=== PATIENT | male | born 1945 | race African-American/Black ===

== ENCOUNTER 2017-09-01 10:04 | Inpatient (IN) | payer MEDICARE, OTHER ==
[2017-09-01] VITALS (7 sets, daily range): BP systolic 152–179; BP diastolic 66–88; PULSE 87–95; RESP 16–24; TEMP 99.6–101.1; O2SAT 94–97
[~2017-09-01] VITALS: Ht 188 cm; Wt 108.8 kg
[2017-09-01] MEDS ORDERED: MORPHINE SULFATE 4 MG/ML INJ IV PUSH ONE (11:00)
[2017-09-01] MEDS ORDERED: SODIUM CHLORIDE 0.9% FLUSH 10 ML FLUSH IV FLUSH PRN ×2 (11:00→16:45)
[2017-09-01] MEDS ORDERED: ONDANSETRON HCL 4 MG/2 ML VIAL IVP ONE (11:00)
[2017-09-01 11:47] LABS: BASOPHIL % 0.2 % (0.0-2.0); EOSINOPHIL % 0.1 % (0.0-4.0); HEMATOCRIT 43.7 % (39.0-51.0); HEMO FLAGS DIFF FINAL; LYMPH % 6.6 % (9.0-44.0); MEAN CELL VOLUME 91.1 FL (80.0-100.0); MEAN CORPUSCULAR HEMOGLOBIN 31.2 PG (27.0-34.0); MEAN CORPUSCULAR HGB CONC 34.2 % (32.0-36.0); MONO % 4.4 % (0.0-8.0); NEUT % 88.7 % (16.0-70.0); PLATELET COUNT 186 TH/MM3 (150-450); RED BLOOD COUNT 4.79 MIL/MM3 (4.50-5.90); RED CELL DISTRIBUTION WIDTH 13.3 % (11.6-17.2); WHITE BLOOD COUNT 14.6 TH/MM3 (4.0-11.0)
[2017-09-01 11:54] LABS: BACTERIA, URINE MOD /hpf; BLOOD, URINE MOD (NEG); COMMENT (UR) CULTURE INDICATED; CULTURE IF INDICATED CULTURE INDICATED; GLUCOSE,URINE NEG (NEG); KETONE, URINE NEG (NEG); MUCUS URINE FEW /lpf (OCC); NITRITE,URINE POS (NEG); SQUAMOUS EPITHELIAL CELL URINE <1 /hpf (0-5); URINE COLOR YELLOW (YELLW/STRAW)
[2017-09-01] MEDS ORDERED: cefTRIAXone INJ 1,000 MG in SODIUM CHLORIDE 0.9% INJ 100 ML IV ONE (12:00)
[2017-09-01 12:09] LABS: ANION GAP 6 MEQ/L (5-15); AST (GOT) 26 U/L (15-37); BICARBONATE 26.2 MEQ/L (21.0-32.0); BLOOD UREA NITROGEN 10 MG/DL (7-18); CHLORIDE 102 MEQ/L (98-107); GLOMERULAR FILTRATION RATE 55 ML/MIN (>89); SODIUM (NA) 134 MEQ/L (136-145)
[2017-09-01 12:11] LABS: ALT (GPT) 31 U/L (12-78)
--- NOTE | 2017-09-01 12:11 | RADRPT ---
EXAM DATE/TIME: 09/01/2017 11:11 [facility] COMPARISON: No previous studies available for comparison. INDICATIONS : Left testicle pain. MEDICAL HISTORY : Hypertension. SURGICAL HISTORY : Bilateral hip replacement. Bialteral knee replacement. Left ankle surgery. ENCOUNTER: Initial ACUITY: 1 day PAIN SCORE: 5/10 LOCATION: Bilateral testicles. MEASUREMENTS: RIGHT TESTICLE: 5.1 x 3.6 x 2.5 cm LEFT TESTICLE: 4.4 x 3.4 x 3.3cm FINDINGS: RIGHT TESTICLE: Scattered, punctate hyperechoic areas characteristic of early microlithiasis.. Blood flow is symmetr ic and within normal limits. No hydrocele or varicocele. Epididymis is within normal limits with a small epididymal cyst.. Heterogeneous, complex area near the mid testicle is symmetric to the contra lateral side and probably represents the prominent rete testes. LEFT TESTICLE: Homogeneous echotexture without intra testicular mass. However, there is a 2.2 x 3.2 x 3.1 cm comple x area adjacent to the lower pole of the testicle which does not show regional blood flow. Blood edin w to the testicle is symmetric and within normal limits. No hydrocele or varicocele. Epididymis is within normal limits. Heterogeneous, complex area in the mid testicle is again symmetric to the cont ralateral side and probably represents a prominent rete testes. SCROTUM: Within normal limits. CONCLUSION: 1. Mild microlithiasis the right testicle with no discrete mass lesion. 2. Small epididymal cyst also on the right. 3. Complex 2.2 x 3.2 x 2.1 cm extratesticular area adjacent to the lower pole of the left testicle do es not show regional blood flow and is overtly benign. This could represent old thrombus or debris if there is a history of trauma/epididymitis to the left hemiscrotum. I would recommend a followup test icular ultrasound in 3 months to insure stability/resolution. 4. Prominent rete testes bilaterally. Uday Cunningham MD on September 01, 2017 at 11:55 Board Certified Radiologist. This report was verified electronically.
[2017-09-01 12:12] LABS: ALKALINE PHOSPHATASE 103 U/L (45-117); TOTAL BILIRUBIN ADULT 0.8 MG/DL (0.2-1.0)
[2017-09-01] MEDS ORDERED: DOCU100C15 PO (13:24)
[2017-09-01] MEDS ORDERED: AMLO10TA2 PO (13:24)
[2017-09-01] MEDS ORDERED: TERA2CAP3 PO (13:24)
[2017-09-01] MEDS ORDERED: LORA-650 PO (13:24)
[2017-09-01] MEDS ORDERED: IOHEXOL 350 MG/ML 10 ML VIAL (for RAD DIAG) IVCONTRAST ONE (13:24)
[2017-09-01] MEDS ORDERED: LOSA100T PO (13:24)
[2017-09-01] MEDS ORDERED: TRAZ1TAB14 PO (13:24)
[2017-09-01] MEDS ORDERED: DONE10TA7 PO (13:24)
[2017-09-01] MEDS ORDERED: CITA10TA4 PO (13:24)
[2017-09-01] MEDS ORDERED: ETOD400T PO (13:24)
--- NOTE | 2017-09-01 13:47 | RADRPT ---
EXAM DATE/TIME: 09/01/2017 13:16 [facility] COMPARISON: No previous studies available for comparison. INDICATIONS : Bilateral abdominal pain radiating to groin IV CONTRAST: 93 cc Omnipaque 350 (iohexol) IV ORAL CONTRAST: No oral contrast ingested. RADIATION DOSE: 18.01 CTDIvol (mGy) MEDICAL HISTORY : Hypertension. SURGICAL HISTORY : None. ENCOUNTER: Initial ACUITY: 1 day PAIN SCALE: 8/10 LOCATION: Bilateral abdomen TECHNIQUE: Volumetric scanning of the abdomen and pelvis was performed. Using automated exposure control and ad justment of the mA and/or kV according to patient size, radiation dose was kept as low as reasonably achievable to obtain optimal diagnostic quality images. DICOM format image data is available electro nically for review and comparison. FINDINGS: LOWER LUNGS: The visualized lower lungs are clear. LIVER: Homogeneous density without lesion. There is no dilation of the biliary tree. No calcified gallston es. SPLEEN: Normal size without lesion. PANCREAS: Within normal limits. KIDNEYS: A 6.6 x 6.2 x 5.8 cm solid mass is seen exophytic from the lower pole the right kidney. Hounsfield un its are 36. A few tiny wispy calcifications are seen involving the peripheral medial margin of the ma ss within its more inferior extent. ADRENAL GLANDS: Small bilateral adrenal gland nodules observed. The left measures 1.9 cm with Hounsfield units 38 and the right 1.5 cm with Hounsfield units 36. VASCULAR: There is no aortic aneurysm. BOWEL/MESENTERY: The stomach, small bowel, and colon demonstrate no acute abnormality. There is no free intraperitone al air or fluid. ABDOMINAL WALL: Within normal limits. RETROPERITONEUM: There is no lymphadenopathy. BLADDER: No wall thickening or mass. REPRODUCTIVE: Within normal limits. INGUINAL: There is no lymphadenopathy or hernia. MUSCULOSKELETAL: Bilateral hip arthroplasties. Old trauma involving the pubic rami on the right. CONCLUSION: 1. 6.6 x 6.2 x 5.8 cm solid mass involving the lower pole of the right kidney. This should be conside red malignant until proven otherwise. No involvement of the renal vein. No retroperitoneal adenopathy . The lesion is accessible percutaneously for biopsy. The lesion is too large for consideration for c ryoablation. 2. Bilateral adrenal gland nodules which are nonspecific on this study. Adrenal gland protocol MRI co uld be considered to further evaluate. 3. No acute abnormality to explain the patient's pain. Eduardo Peter Jr., MD on September 01, 2017 at 13:35 Board Certified Radiologist. This report was verified electronically.
[2017-09-01] MEDS ORDERED: KETOROLAC TROMETHAMINE 30 MG/ML (IVP) VIAL IV PUSH ONE (14:30)
--- NOTE | 2017-09-01 15:43 | PD ---
HPI Chief Complaint: Abdominal Pain Time Seen by Provider: 10:43 Travel History International Travel<30 days: No Contact w/Intl Traveler<30days: No Traveled to known affect area: No History of Present Illness HPI Patient is a 72 year old male who comes in complaining of severe LLQ abdominal pain, radiating into his testicle. He says it started yesterday. He says he was feeling unwell, with nausea and weakness. The pain started later in the evening. He denies difficulty urinating. He denies trauma to his testicles. He denies fever or chills. He denies cough or cold. He says he is having normal bowel movements. He did not take anything for pain at home. [facility] Past Medical History Cardiovascular Problems: Yes (HTN) Hypertension: Yes Influenza Vaccination: Yes Past Surgical History Other Surgery: Yes (LEFT ANKLE SURGERY) Social History Alcohol Use: No Tobacco Use: No Substance Use: No Allergies-Medications (Allergen,Severity, Reaction): Coded Allergies: No Known Allergies (Unverified , 09/01/17) Reported Meds & Prescriptions Reported Meds & Active Scripts Active Reported Trazodone (Trazodone HCl) 150 Mg Tablet 100 Mg PO HS Terazosin (Terazosin HCl) 2 Mg Cap 2 Mg PO HS Losartan (Losartan Potassium) 100 Mg Tab 100 Mg PO DAILY Allergy Relief (Loratadine) 10 Mg Tab 10 Mg PO DAILY PRN Etodolac 400 Mg Tab 400 Mg PO TID PRN Take with food. Donepezil 10 Mg Tab 10 Mg PO HS Docusate Sodium 100 Mg Cap 100 Mg PO BID PRN Citalopram (Citalopram Hydrobromide) 10 Mg Tab 10 Mg PO DAILY Amlodipine (Amlodipine Besylate) 10 Mg Tab 10 Mg PO DAILY Review of Systems Except as stated in HPI: all other systems reviewed are Neg General / Constitutional: No: Fever HENT: No: Headaches, Lightheadedness Cardiovascular: No: Chest Pain or Discomfort Respiratory: No: Shortness of Breath Gastrointestinal: Positive: Nausea, Abdominal Pain Genitourinary: No: Hematuria Musculoskeletal: No: Edema Skin: No Rash, No Change in Pigmentation Neurologic: No: Weakness, Dizziness Physical Exam Narrative GENERAL: Awake and alert, in no acute distress. SKIN: Focused skin assessment warm/dry. HEAD: Atraumatic. Normocephalic. EYES: Pupils equal and round. No scleral icterus. ENT: Mucous membranes pink and moist. NECK: Trachea midline. No JVD. CARDIOVASCULAR: Regular rate and rhythm. No murmur appreciated. RESPIRATORY: No accessory muscle use. Clear to auscultation. Breath sounds equal bilaterally. GASTROINTESTINAL: Abdomen soft, nondistended. Tender to palpation of LLQ. No rebound or guarding. : Tender to the left testicle, no masses or lesions. No hernia. MUSCULOSKELETAL: No obvious deformities. No clubbing. No cyanosis. No edema. NEUROLOGICAL: Awake and alert. No obvious cranial nerve deficits. Motor grossly within normal limits. Normal speech. PSYCHIATRIC: Appropriate mood and affect; insight and judgment normal. Data Data Last Documented VS Vital Signs Date Time Temp Pulse Resp B/P (MAP) Pulse Ox O2 Delivery O2 Flow Rate FiO2 09/01/17 14:34 93 24 179/88 (118) 96 Room Air 09/01/17 10:15 99.7 Orders Orders Complete Blood Count With Diff (09/01/17 10:53) Comprehensive Metabolic Panel (09/01/17 10:53) Lactic Acid (09/01/17 10:53) Urinalysis - C+S If Indicated (09/01/17 10:53) Iv Access Insert/Monitor (09/01/17 10:53) Ecg Monitoring (09/01/17 10:53) Oximetry (09/01/17 10:53) Morphine Inj (Morphine Inj) (09/01/17 11:00) Ondansetron Inj (Zofran Inj) (09/01/17 11:00) Sodium Chloride 0.9% Flush (Ns Flush) (09/01/17 11:00) Us Testicles W Doppler (09/01/17 ) Urine Culture (09/01/17 11:10) Ceftriaxone Inj (Rocephin Inj) (09/01/17 12:00) Ct Abd/Pel W Iv Contrast(Rout) (09/01/17 ) Iohexol 350 Inj (Omnipaque 350 Inj) (09/01/17 13:24) Ketorolac Inj (Toradol Inj) (09/01/17 14:30) Labs Laboratory Tests Test 09/01/17 11:10 White Blood Count 14.6 TH/MM3 Red Blood Count 4.79 MIL/MM3 Hemoglobin 14.9 GM/DL Hematocrit 43.7 % Mean Corpuscular Volume 91.1 FL Mean Corpuscular Hemoglobin 31.2 PG Mean Corpuscular Hemoglobin Concent 34.2 % Red Cell Distribution Width 13.3 % Platelet Count 186 TH/MM3 Mean Platelet Volume 9.4 FL Neutrophils (%) (Auto) 88.7 % Lymphocytes (%) (Auto) 6.6 % Monocytes (%) (Auto) 4.4 % Eosinophils (%) (Auto) 0.1 % Basophils (%) (Auto) 0.2 % Neutrophils # (Auto) 13.0 TH/MM3 Lymphocytes # (Auto) 1.0 TH/MM3 Monocytes # (Auto) 0.6 TH/MM3 Eosinophils # (Auto) 0.0 TH/MM3 Basophils # (Auto) 0.0 TH/MM3 CBC Comment DIFF FINAL Differential Comment Urine Color YELLOW Urine Turbidity HAZY Urine pH 7.0 Urine Specific [place] 1.016 Urine Protein TRACE mg/dL Urine Glucose (UA) NEG mg/dL Urine Ketones NEG mg/dL Urine Occult Blood MOD Urine Nitrite POS Urine Bilirubin MOD Urine Urobilinogen LESS THAN 2.0 MG/DL Urine Leukocyte Esterase LARGE Urine RBC 91 /hpf Urine WBC /hpf Urine Squamous Epithelial Cells <1 /hpf Urine Bacteria MOD /hpf Urine Mucus FEW /lpf Microscopic Urinalysis Comment CULTURE INDICATED Blood Urea Nitrogen 10 MG/DL Creatinine 1.30 MG/DL Random Glucose 108 MG/DL Total Protein 8.8 GM/DL Albumin 3.7 GM/DL Calcium Level 9.0 MG/DL Alkaline Phosphatase 103 U/L Aspartate Amino Transf (AST/SGOT) 26 U/L Alanine Aminotransferase (ALT/SGPT) 31 U/L Total Bilirubin 0.8 MG/DL Sodium Level 134 MEQ/L Potassium Level 4.0 MEQ/L Chloride Level 102 MEQ/L Carbon Dioxide Level 26.2 MEQ/L Anion Gap 6 MEQ/L Estimat Glomerular Filtration Rate 55 ML/MIN Lactic Acid Level 1.6 mmol/L MDM Medical Decision Making Medical Screen Exam Complete: Yes Emergency Medical Condition: Yes Differential Diagnosis UTI vs colitis vs testicular torsion vs epididymitis Narrative Course Patient is a 72-year-old male who comes in complaining of left lower quadrant abdominal pain. Exam shows tenderness to the left testicle as well as the left lower quadrant. IV established, labs sent. Labs show no elevation in white blood cell count of 14.6. Urinalysis is positive for UTI. Ultrasound of the testicle showed no evidence of torsion. CT abdomen and pelvis shows a right renal mass. Patient given Rocephin, morphine, Toradol. He'll be admitted for further management. Last 24 hours Impressions Scrotum Ultrasound 09/01/17 0000 Signed Impressions: Service Date/Time: August 11:11 - CONCLUSION: 1. Mild microlithiasis the right testicle with no discrete mass lesion. 2. Small epididymal cyst also on the right. 3. Complex 2.2 x 3.2 x 2.1 cm extratesticular area adjacent to the lower pole of the left testicle does not show regional blood flow and is overtly benign. This could represent old thrombus or debris if there is a history of trauma/epididymitis to the left hemiscrotum. I would recommend a followup testicular ultrasound in 3 months to insure stability/resolution. 4. Prominent rete testes bilaterally. Uday Cunningham MD Abdomen/Pelvis CT 09/01/17 0000 Signed Impressions: Service Date/Time: August 13:16 - CONCLUSION: 1. 6.6 x 6.2 x 5.8 cm solid mass involving the lower pole of the right kidney. This should be considered malignant until proven otherwise. No involvement of the renal vein. No retroperitoneal adenopathy. The lesion is accessible percutaneously for biopsy. The lesion is too large for consideration for cryoablation. 2. Bilateral adrenal gland nodules which are nonspecific on this study. Adrenal gland protocol MRI could be considered to further evaluate. 3. No acute abnormality to explain the patient's pain. Eduardo Peter Jr., MD Diagnosis Primary Impression: UTI (urinary tract infection) Qualified Codes: N30.00 - Acute cystitis without hematuria Additional Impression: Renal mass Admitting Information Admitting Physician Requests: Admit Naila Lopez MD Sep 01, 2017 15:43
--- NOTE | 2017-09-01 15:56 | HHI.HP ---
[facility] Service Family Medicine Primary Care Physician Non-Staff Admission Diagnosis Diagnoses: International Travel<30 Days: No Contact w/Intl Traveler<30days: No Known Affected Area: No History of Present Illness 72 yo male with h/o hypertension and BPH presenting with groin/testicular pain x 1 month. Comes and goes. Got worse yesterday morning. Worse on left testicle. Pressure. 8-9/10. Never had pain like this before. Yesterday pain was so bad that he couldn't walk. Weak urinary stream while urinating. occasional dysuria. Every now and then a little red urine, no gross blood. +fever and chills last night. +night sweats. +weight loss (unintentional, due to acute illness a year or so ago, never regained weight). Constipated. No blood in stool .Colonoscopy 1 year ago, normal. +HOOD. +cough for last week. (El Duong MD R2) Review of Systems Constitutional: COMPLAINS OF: Weight loss, Chills, Night Sweats, DENIES: Fever Endocrine: DENIES: Polydipsia, Polyuria Eyes: DENIES: Eye pain, Vision loss Ears, nose, mouth, throat: DENIES: Throat pain, Ear Pain, Sinus Pain Respiratory: COMPLAINS OF: Cough, DENIES: Wheezing, Sputum production, Shortness of breath Cardiovascular: DENIES: Chest pain, Palpitations, Dyspnea on Exertion, Lower Extremity Edema Gastrointestinal: COMPLAINS OF: Abdominal pain (groin), Constipation, DENIES: Black stools, Bloody stools, Diarrhea, Nausea Genitourinary: COMPLAINS OF: Dysuria, Nocturia, Testicular Pain (left), DENIES : Urgency, Hematuria, Testicular Swelling Musculoskeletal: DENIES: Joint pain, Muscle aches Integumentary: DENIES: Abnormal pigmentation, Rash Hematologic/lymphatic: DENIES: Lymphadenopathy Immunologic/allergic: DENIES: Urticaria Neurologic: COMPLAINS OF: Headache, DENIES: Abnormal gait, Localized weakness, Paresthesias Psychiatric: DENIES: Anxiety, Depression (El Duong MD R2) Past Family Social History Past Medical History HTN BPH Depression (stable on meds for a long time) Past Surgical History B/L hips replaced Bradly in ankle (L) B/L knee replaced Reported Medications Reported Meds & Active Scripts Active Reported Trazodone (Trazodone HCl) 150 Mg Tablet 100 Mg PO HS Terazosin (Terazosin HCl) 2 Mg Cap 2 Mg PO HS Losartan (Losartan Potassium) 100 Mg Tab 100 Mg PO DAILY Allergy Relief (Loratadine) 10 Mg Tab 10 Mg PO DAILY PRN Etodolac 400 Mg Tab 400 Mg PO TID PRN Take with food. Donepezil 10 Mg Tab 10 Mg PO HS Docusate Sodium 100 Mg Cap 100 Mg PO BID PRN Citalopram (Citalopram Hydrobromide) 10 Mg Tab 10 Mg PO DAILY Amlodipine (Amlodipine Besylate) 10 Mg Tab 10 Mg PO DAILY (El Duong MD R2) Allergies: Coded Allergies: No Known Allergies (Unverified , 09/01/17) Active Ordered Medications Current Medications Medications (Trade) Dose Ordered Sig/Elva Route Start Time Stop Time Status Last Admin (NS Flush) 2 ml UNSCH PRN IV FLUSH 09/01/17 11:00 (Norvasc) 10 mg DAILY PO 09/01/17 16:15 09/01/17 16:29 (CeleXA) 10 mg DAILY PO 09/02/17 09:00 (Colace) 100 mg BID PRN PO 09/01/17 16:15 (Aricept) 10 mg HS PO 09/01/17 21:00 09/01/17 20:59 (Cozaar) 100 mg DAILY PO 09/01/17 16:15 09/01/17 16:28 (Hytrin) 2 mg HS PO 09/01/17 21:00 09/01/17 21:00 (Desyrel) 100 mg HS PO 09/01/17 21:00 09/01/17 21:00 (Pill Splitter) 1 ea UNSCH PRN OTHER 09/01/17 16:30 Sodium Chloride 1,000 ml @ 150 mls/hr Q6H40M IV 09/01/17 18:00 09/01/17 21:01 (NS Flush) 2 ml UNSCH PRN IV FLUSH 09/01/17 16:45 (NS Flush) 2 ml BID IV FLUSH 09/01/17 21:00 09/01/17 21:00 (Tylenol) 650 mg Q4H PRN PO 09/01/17 16:45 09/01/17 18:32 (Zofran Inj) 4 mg Q6H PRN IVP 09/01/17 16:45 (Ambien) 5 mg HS PRN PO 09/01/17 16:45 (Heparin Inj) 5,000 units Q12H SQ 09/01/17 18:00 09/01/17 18:35 (Roxicodone) 5 mg Q6H PRN PO 09/01/17 16:45 09/02/17 00:14 (Narcan Inj) 0.4 mg UNSCH PRN IV PUSH 09/01/17 16:45 (Maria M-Colace) 1 tab BID PO 09/01/17 21:00 09/01/17 21:00 (Milk Of Magnesia Liq) 30 ml Q12H PRN PO 09/01/17 16:45 (Senokot) 17.2 mg Q12H PRN PO 09/01/17 16:45 (Dulcolax Supp) 10 mg DAILY PRN RECTAL 09/01/17 16:45 (Lactulose Liq) 30 ml DAILY PRN PO 09/01/17 16:45 Ceftriaxone Sodium 2000 mg/ Sodium Chloride 100 ml @ 200 mls/hr Q24H IV 09/02/17 09:00 (Pneumovax-23 Inj) 25 mcg ONCE ONCE IM 09/02/17 10:00 09/02/17 10:01 Family History Mother - kidney failure Father - prostate cancer Siblings - alive and healthy, sister with HTN, brother Social History Tob: quit tobacco > 40 years ago Alc: none Drugs: none (El Duong MD R2) Physical Exam Vital Signs Vital Signs Date Time Temp Pulse Resp B/P (MAP) Pulse Ox O2 Delivery O2 Flow Rate FiO2 09/01/17 14:34 93 24 179/88 (118) 96 Room Air 09/01/17 10:15 99.7 91 16 177/88 (117) 97 09/01/17 10:05 99.9 95 20 162/79 (106) 97 Room Air Physical Exam GENERAL: Well-developed, well-nourished adult black male sitting up in bed in no acute distress SKIN: No rashes, ecchymoses or lesions. Cool and dry. HEAD: NC/AT EYES: PERRL. EOMI. No conjunctival injection or drainage. ENT: MMM, OP without erythema, tonsillar swelling, or exudate. NECK: Supple, no lymphadenopathy. No JVD. CARDIOVASCULAR: NRRR. Normal S1/S2. No MRG RESPIRATORY: CTAB. No crackles or wheezes. GASTROINTESTINAL: Abdomen soft, non-distended, mildly tender to palpation in bilateral lower quadrants. No hepato-splenomegaly or palpable masses. GENITOURINARY: Right testicle mildly tender to palpation. Left testicle with epididymal and testicular tenderness worsened on elevation of testicle. No penile discharge or tenderness. MUSCULOSKELETAL: Extremities without clubbing, cyanosis, or edema. No CVA tenderness. NEUROLOGICAL: Awake and alert. Cranial nerves II through XII grossly intact. Moves all extremities without difficulty. Normal speech. Laboratory Laboratory Tests Test 09/01/17 11:10 White Blood Count 14.6 Red Blood Count 4.79 Hemoglobin 14.9 Hematocrit 43.7 Mean Corpuscular Volume 91.1 Mean Corpuscular Hemoglobin 31.2 Mean Corpuscular Hemoglobin Concent 34.2 Red Cell Distribution Width 13.3 Platelet Count 186 Mean Platelet Volume 9.4 Neutrophils (%) (Auto) 88.7 Lymphocytes (%) (Auto) 6.6 Monocytes (%) (Auto) 4.4 Eosinophils (%) (Auto) 0.1 Basophils (%) (Auto) 0.2 Neutrophils # (Auto) 13.0 Lymphocytes # (Auto) 1.0 Monocytes # (Auto) 0.6 Eosinophils # (Auto) 0.0 Basophils # (Auto) 0.0 CBC Comment DIFF FINAL Differential Comment Urine Color YELLOW Urine Turbidity HAZY Urine pH 7.0 Urine Specific [place] 1.016 Urine Protein TRACE Urine Glucose (UA) NEG Urine Ketones NEG Urine Occult Blood MOD Urine Nitrite POS Urine Bilirubin MOD Urine Urobilinogen LESS THAN 2.0 Urine Leukocyte Esterase LARGE Urine RBC 91 Urine WBC Urine Squamous Epithelial Cells <1 Urine Bacteria MOD Urine Mucus FEW Microscopic Urinalysis Comment CULTURE INDICATED Blood Urea Nitrogen 10 Creatinine 1.30 Random Glucose 108 Total Protein 8.8 Albumin 3.7 Calcium Level 9.0 Alkaline Phosphatase 103 Aspartate Amino Transf (AST/SGOT) 26 Alanine Aminotransferase (ALT/SGPT) 31 Total Bilirubin 0.8 Sodium Level 134 Potassium Level 4.0 Chloride Level 102 Carbon Dioxide Level 26.2 Anion Gap 6 Estimat Glomerular Filtration Rate 55 Lactic Acid Level 1.6 Date/Time Source Procedure Growth Status 09/01/17 11:10 Urine Clean Catch Urine Culture Pending Received (El Duong MD R2) Result Diagram: 09/01/17 1110 09/01/17 1110 Imaging Last Impressions Scrotum Ultrasound 09/01/17 0000 Signed Impressions: Service Date/Time: August 11:11 - CONCLUSION: 1. Mild microlithiasis the right testicle with no discrete mass lesion. 2. Small epididymal cyst also on the right. 3. Complex 2.2 x 3.2 x 2.1 cm extratesticular area adjacent to the lower pole of the left testicle does not show regional blood flow and is overtly benign. This could represent old thrombus or debris if there is a history of trauma/epididymitis to the left hemiscrotum. I would recommend a followup testicular ultrasound in 3 months to insure stability/resolution. 4. Prominent rete testes bilaterally. Uday Cunningham MD Abdomen/Pelvis CT 09/01/17 0000 Signed Impressions: Service Date/Time: August 13:16 - CONCLUSION: 1. 6.6 x 6.2 x 5.8 cm solid mass involving the lower pole of the right kidney. This should be considered malignant until proven otherwise. No involvement of the renal vein. No retroperitoneal adenopathy. The lesion is accessible percutaneously for biopsy. The lesion is too large for consideration for cryoablation. 2. Bilateral adrenal gland nodules which are nonspecific on this study. Adrenal gland protocol MRI could be considered to further evaluate. 3. No acute abnormality to explain the patient's pain. Eduardo Peter Jr., MD (El Duong MD R2) Caprini VTE Risk Assessment Caprini VTE Risk Assessment: Mod/High Risk (score >= 2) (El Duong MD R2) Assessment and Plan Assessment and Plan 72 male with HTN, BPH presenting with: (El Duong MD R2) Attending Attestation THIS CASE WAS DISCUSSED WITH THE RESIDENT PHYSICIANS. I HAVE REVIEWED THE RECORD AND AGREE WITH THE ABOVE NOTE AND PLAN OF CARE WAS DISCUSSED. I HAVE AUTHORIZED THE ORDER FOR ADMISSION TO AN IN-PATIENT STATUS. I WAS PRESENT DURING THE ABOVE INTERVIEW AND EXAM. I AGREE WITH THE ASSESSMENT ABOVE. (Michelle Sánchez MD) Problem List: (1) Left testicular pain ICD Codes: N50.812 - Left testicular pain Status: Acute Plan: Torsion ruled out by ultrasound. Clinically could be epididymitis however could also easily be related to potential cancer (see below). Scrotal US with extratesticular debris L scrotum - Tylenol 650 mg PRN moderate pain - Oxycodone 5 mg Q6H PRN severe pain - Radiology recommended repeat ultrasound in 3 months to confirm stability (2) UTI (urinary tract infection) ICD Codes: N39.0 - Urinary tract infection, site not specified Status: Acute Plan: UA with positive nitrite and leukocyte esterase +leukocytosis - s/p Rocephin 1 gm in ED - continue Rocephin 2 gm IV daily - NS @ 150 cc/hr - F/u urine Cx - Trend CBC (3) Renal mass ICD Codes: N28.89 - Other specified disorders of kidney and ureter Status: Acute Plan: Work-up for pelvic/groin pain revealed large renal mass on right kidney, high suspicion for malignancy - CT guided biopsy of renal mass - Pain control as above - Check PSA - Additional work-up based on results of biopsy (4) BPH (benign prostatic hyperplasia) ICD Codes: N40.0 - Benign prostatic hyperplasia without lower urinary tract symptoms Status: Chronic Plan: Stable symptoms, possibly exacerbated due to processes noted above - Continue home terazosin (5) Essential hypertension ICD Codes: I10 - Essential (primary) hypertension Status: Chronic Plan: Continue home losartan, amlodipine, terazosin (6) FEN/PPX Plan: Fluids: as above Electrolytes: Monitor and replace PRN Nutrition: Diet regular DVT prophylaxis: Heparin 5000 units TID Code status: Full code (El Duong MD R2) Physician Certification 2 Midnight Certification Type: Admission for Inpatient Services Order for Inpatient Services The services are ordered in accordance with Medicare regulations or non- Medicare payer requirements, as applicable. In the case of services not specified as inpatient-only, they are appropriately provided as inpatient services in accordance with the 2-midnight benchmark. Estimated LOS (days): 2 days is the estimated time the patient will need to remain in the hospital, assuming treatment plan goals are met and no additional complications. Post-Hospital Plan: Home (El Duong MD R2) 2 Midnight Certification Type: Admission for Inpatient Services Post-Hospital Plan: Home (Michelle Sánchez MD) Problem Qualifiers (1) UTI (urinary tract infection): Qualified Codes: N30.00 - Acute cystitis without hematuria (2) BPH (benign prostatic hyperplasia): Qualified Codes: N40.1 - Benign prostatic hyperplasia with lower urinary tract symptoms; R39.12 - Poor urinary stream El Duong MD R2 Sep 01, 2017 15:56 Michelle Sánchez MD Sep 02, 2017 08:25
[2017-09-01] MEDS ORDERED: DOCUSATE SODIUM 100 MG CAP PO PRN (16:15)
[2017-09-01] MEDS: LOSARTAN 50 MG TAB PO SCH (16:28)
[2017-09-01] MEDS ORDERED: PILL SPLITTER OTHER PRN (16:30)
[2017-09-01] MEDS ORDERED: SENNOSIDES 8.6 MG TAB PO PRN (16:45)
[2017-09-01] MEDS ORDERED: ZOLPIDEM TARTRATE 5 MG TAB PO PRN (16:45)
[2017-09-01] MEDS ORDERED: LACTULOSE SYRUP 20 GM/30 ML CUP PO PRN (16:45)
[2017-09-01] MEDS ORDERED: MAGNESIUM HYDROXIDE SUSP 30 ML CUP PO PRN (16:45)
[2017-09-01] MEDS ORDERED: BISACODYL 10 MG SUPP RECTAL PRN (16:45)
[2017-09-01] MEDS ORDERED: ONDANSETRON HCL 4 MG/2 ML VIAL IVP PRN (16:45)
[2017-09-01] MEDS ORDERED: NALOXONE HCL 0.4 MG/ML AMP IV PUSH PRN (16:45)
[2017-09-01] MEDS ORDERED: HEPARIN SODIUM - SQ 10,000 UNITS/ML VIAL SQ SCH (18:00)
[2017-09-01] MEDS: ACETAMINOPHEN 325 MG TAB PO PRN (18:32)
[2017-09-01] MEDS: DONEPEZIL HCL 5 MG TAB PO SCH (20:59)
[2017-09-01] MEDS: TERAZOSIN HCL 1 MG CAP PO SCH (21:00)
[2017-09-01] MEDS: traZODone HCL 100 MG TAB PO SCH (21:00)
[2017-09-01] MEDS: SODIUM CHLORIDE 0.9% FLUSH 10 ML FLUSH IV FLUSH SCH (21:00)
[2017-09-01] MEDS: DOCUSATE SODIUM 50 MG/SENNA 8.6 MG TAB PO SCH (21:00)
[2017-09-01] MEDS: SODIUM CHLOR 0.9% 1000 ML INJ 1,000 ML IV SCH (21:01)
[2017-09-02] VITALS (11 sets, daily range): BP systolic 135–168; BP diastolic 63–79; PULSE 90–111; RESP 17–21; TEMP 98.2–101.3; O2SAT 93–98
[2017-09-02] MEDS: SODIUM CHLOR 0.9% 1000 ML INJ 1,000 ML IV SCH ×4 (00:40→19:50)
[2017-09-02] MEDS: HEPARIN SODIUM - SQ 10,000 UNITS/ML VIAL SQ SCH ×3 (02:12→17:26)
[2017-09-02] MEDS: ACETAMINOPHEN 325 MG TAB PO PRN ×2 (03:29→19:51)
[2017-09-02] MEDS: cefTRIAXone INJ 2,000 MG in SODIUM CHLORIDE 0.9% INJ 100 ML IV SCH (04:46)
[2017-09-02] MEDS: SODIUM CHLORIDE 0.9% FLUSH 10 ML FLUSH IV FLUSH SCH ×2 (07:47→19:51)
[2017-09-02 07:50] LABS: AUTOMATED NEUTROPHIL # 14.2 TH/MM3 (1.8-7.7); BASOPHIL % 0.2 % (0.0-2.0); HEMATOCRIT 38.3 % (39.0-51.0); HEMO FLAGS DIFF FINAL; LYMPH % 7.9 % (9.0-44.0); LYMPHOCYTE # 1.3 TH/MM3 (1.0-4.8); MEAN CELL VOLUME 90.9 FL (80.0-100.0); MEAN CORPUSCULAR HEMOGLOBIN 31.1 PG (27.0-34.0); MEAN CORPUSCULAR HGB CONC 34.3 % (32.0-36.0); MONO % 5.9 % (0.0-8.0); PLATELET COUNT 149 TH/MM3 (150-450); RED BLOOD COUNT 4.21 MIL/MM3 (4.50-5.90); RED CELL DISTRIBUTION WIDTH 12.8 % (11.6-17.2); WHITE BLOOD COUNT 16.6 TH/MM3 (4.0-11.0)
[2017-09-02 08:23] LABS: BICARBONATE 25.8 MEQ/L (21.0-32.0)
[2017-09-02 08:25] LABS: POTASSIUM 4.1 MEQ/L (3.5-5.1)
[2017-09-02] MEDS ORDERED: cefTRIAXone INJ 2,000 MG in SODIUM CHLORIDE 0.9% INJ 100 ML IV SCH (09:00)
[2017-09-02] MEDS ORDERED: cefTRIAXone INJ 1,000 MG in SODIUM CHLORIDE 0.9% INJ 100 ML IV SCH (09:00)
[2017-09-02] MEDS: LOSARTAN 50 MG TAB PO SCH (09:01)
[2017-09-02] MEDS: DOCUSATE SODIUM 50 MG/SENNA 8.6 MG TAB PO SCH ×2 (09:01→19:50)
[2017-09-02] MEDS: CITALOPRAM HYDROBROMIDE 20 MG TAB PO SCH (09:01)
[2017-09-02] MEDS ORDERED: PNEUMOCOCCAL POLYVALENT INJ 25 MCG/0.5 ML SYR IM ONE (10:00)
[2017-09-02 11:25] LABS: APTT (PATIENT) 31.6 SEC (24.3-30.1); INTERNATIONAL NORMALIZED RATIO 1.1 RATIO; PROTHROMBIN TIME - PATIENT 11.8 SEC (9.8-11.6)
--- NOTE | 2017-09-02 12:18 | HHI.FPPN ---
Problem Problem List: (1) Renal mass (2) UTI (urinary tract infection) (3) Essential hypertension (4) Left testicular pain Subjective Subjective 72 year old man that was admitted through the ED for renal mass and groin pain. He had fevers/chills overnight but otherwise has no complaint. He continues to complain of pain if he is up walking. He denies SOB, CP. States he feels like his urination has slightly improved. [facility] Objective Objective Last Impressions Scrotum Ultrasound 09/01/17 0000 Signed Impressions: Service Date/Time: August 11:11 - CONCLUSION: 1. Mild microlithiasis the right testicle with no discrete mass lesion. 2. Small epididymal cyst also on the right. 3. Complex 2.2 x 3.2 x 2.1 cm extratesticular area adjacent to the lower pole of the left testicle does not show regional blood flow and is overtly benign. This could represent old thrombus or debris if there is a history of trauma/epididymitis to the left hemiscrotum. I would recommend a followup testicular ultrasound in 3 months to insure stability/resolution. 4. Prominent rete testes bilaterally. Uday Cunningham MD Abdomen/Pelvis CT 09/01/17 0000 Signed Impressions: Service Date/Time: August 13:16 - CONCLUSION: 1. 6.6 x 6.2 x 5.8 cm solid mass involving the lower pole of the right kidney. This should be considered malignant until proven otherwise. No involvement of the renal vein. No retroperitoneal adenopathy. The lesion is accessible percutaneously for biopsy. The lesion is too large for consideration for cryoablation. 2. Bilateral adrenal gland nodules which are nonspecific on this study. Adrenal gland protocol MRI could be considered to further evaluate. 3. No acute abnormality to explain the patient's pain. Eduardo Peter Jr., MD Laboratory Tests - Abnormals Test 09/02/17 06:42 09/02/17 11:02 White Blood Count 16.6 TH/MM3 Red Blood Count 4.21 MIL/MM3 Hematocrit 38.3 % Platelet Count 149 TH/MM3 Neutrophils (%) (Auto) 86.0 % Lymphocytes (%) (Auto) 7.9 % Neutrophils # (Auto) 14.2 TH/MM3 Monocytes # (Auto) 1.0 TH/MM3 Calcium Level 8.4 MG/DL Estimat Glomerular Filtration Rate 73 ML/MIN Prothrombin Time 11.8 SEC Activated Partial Thromboplast Time 31.6 SEC Vital Signs 09/01/17 09/01/17 09/01/17 09/01/17 14:34 16:21 17:45 17:48 Temp 101.1 Pulse 93 87 89 Resp 24 16 18 B/P (MAP) 179/88 (118) 152/77 (102) 156/66 (96) Pulse Ox 96 96 97 O2 Delivery Room Air Room Air 09/01/17 09/01/17 09/01/17 09/02/17 20:00 20:00 22:06 00:00 Temp 99.6 99.6 Pulse 95 98 Resp 20 21 B/P (MAP) 154/73 (100) 150/77 (101) Pulse Ox 94 94 97 O2 Delivery Room Air 09/02/17 09/02/17 09/02/17 09/02/17 04:00 06:07 08:00 10:45 Temp 101.3 98.3 99.0 Pulse 96 90 Resp 20 18 B/P (MAP) 135/63 (87) 150/73 (98) Pulse Ox 94 95 95 Physical exam O. CONSTITUTIONAL/GEN: normally nourished, in NAD. EYES: conjunctiva normal, PERRLA, EOMI. ENT: Mouth and pharynx normal. NECK: thyroid midline, carotids symmetrical. LUNGS: clear A-P, respiratory effort is normal. CARDIOVASCULAR: RR without murmur or gallop. No significant edema. GI/ABD: soft without masses, without organomegaly. : no CVA tenderness NEURO: No focal deficits. Gait is normal SKIN: color normal, no rashes noted. HEME/LYMPH: no bruising, petechia or significant adenopathy MUSC: back is normal in appearance. Extremities are normal in appearance. PSYCH/MENTAL STATUS: Alert and oriented x 3. Assessment Assessment: (1) Renal mass Plan: The imaging suggests this is likely malignant. At this time IR is set to do a CT guided biopsy of this lesion. (2) UTI (urinary tract infection) Plan: His culture is growing gram negative joaquina. At this time will continue the rocephin and follow the cultures. His UO is ok but he does have negative fluid balance. Will start the patient on some IVF and continue PO intake as well (3) Left testicular pain Plan: US was not revealing -- pain in the groin has lessened. Will monitor. (4) Essential hypertension Plan: Stable -- will continue his current meds Assessment 72 year old male with UTI and renal mass. Biopsy pending and patient currently being treated for UTI. Continue to follow cultures and current therapy. PLAN PLAN Patient seen and dw resident team - Dr. Rivera and Dr. Rhoda áSnchez,Michelle Vincent MD Sep 02, 2017 12:18
[2017-09-02] MEDS ORDERED: MIDAZOLAM HCL 2 MG/2 ML VIAL ONE (14:34)
--- NOTE | 2017-09-02 15:14 | PD.RAD ---
Post CT Procedure Prog Note Pre Procedure Diagnosis: (1) Renal mass Post Procedure Diagnosis: Procedure Date: Sep 02, 2017 Supervising Radiologist: Low Benites Proceduralist/Assist: emili dean Estimated blood loss: 0 Plan of Activity Patient to Unit: ROPU Patient Condition: Good See PACS Report for procedural detail/treatment Low Benites MD Sep 02, 2017 15:14
--- NOTE | 2017-09-02 15:31 | RADRPT ---
EXAM DATE/TIME: 09/02/2017 14:41 [facility] COMPARISON: No previous studies available for comparison. INDICATIONS : Right renal mass. SEDATION TIME: 30 minutes BIOPSY SITE: Right MEDICATION(S): 1.) 3 mg midazolam (Versed) IV 2.) 150 mcg fentanyl (Sublimaze) IV DEVICE(S): 1.) 20 gauge Temno core biopsy needle MEDICAL HISTORY : Hypertension. Cardiovascular disease. SURGICAL HISTORY : None. ENCOUNTER: Initial ACUITY: 1 day PAIN SCORE: 0/10 LOCATION: Right A total of five core specimen(s) were obtained and sent to the laboratory for pathologic evaluation. PROCEDURE: 1. CT guided renal biopsy. 2. Conscious sedation with continuous EKG and oximetry monitoring. 3. EKG and oximetry remained stable throughout the procedure. Prior to the procedure informed consent was obtained. Any appropriate prior imaging studies were rev iewed. Using automated exposure control and adjustment of the mA and/or kV according to patient size, radiat ion dose was kept as low as reasonably achievable to obtain optimal diagnostic quality images. DICOM format image data is available electronically for review and comparison. The site was prepped in a sterile fashion. Full sterile technique was used, including cap, mask, christine rile gloves and gown and a large sterile sheet. Hand hygiene and 2% chlorhexidine and/or betadine/al cohol prep was utilized per protocol for cutaneous antisepsis. The skin and subcutaneous tissues wer e infiltrated with local anesthetic solution. With CT guidance the previously identified target was localized. Biopsy was performed using the presc ribed needle as above. Adequate hemostasis was obtained with compression at the puncture site. Follow-up CT scan reveals no hemorrhage. The patient tolerated the procedure well and there were no complications. The patient was returned to the Radiology Outpatient Unit in stable condition. CONCLUSION: Uncomplicated CT guided biopsy. Low Benites MD on September 02, 2017 at 15:29 Board Certified Radiologist. This report was verified electronically.
[2017-09-02 15:51] LABS: BASOPHIL # 0.1 TH/MM3 (0-0.2); BASOPHIL % 0.4 % (0.0-2.0); EOSINOPHIL % 0.1 % (0.0-4.0); HEMATOCRIT 37.6 % (39.0-51.0); HEMO FLAGS DIFF FINAL; LYMPH % 9.9 % (9.0-44.0); LYMPHOCYTE # 1.8 TH/MM3 (1.0-4.8); MEAN CELL VOLUME 90.4 FL (80.0-100.0); MEAN CORPUSCULAR HEMOGLOBIN 30.2 PG (27.0-34.0); MEAN CORPUSCULAR HGB CONC 33.4 % (32.0-36.0); MONO % 5.7 % (0.0-8.0); NEUT % 83.9 % (16.0-70.0); PLATELET COUNT 158 TH/MM3 (150-450); RED BLOOD COUNT 4.15 MIL/MM3 (4.50-5.90); RED CELL DISTRIBUTION WIDTH 13.1 % (11.6-17.2); WHITE BLOOD COUNT 17.9 TH/MM3 (4.0-11.0)
[2017-09-02] MEDS: DONEPEZIL HCL 5 MG TAB PO SCH (19:50)
[2017-09-02] MEDS: TERAZOSIN HCL 1 MG CAP PO SCH (19:50)
[2017-09-02] MEDS: traZODone HCL 100 MG TAB PO SCH (19:51)
[2017-09-03] VITALS (7 sets, daily range): BP systolic 120–162; BP diastolic 73–82; PULSE 88–102; RESP 18–22; TEMP 98.8–99.9; O2SAT 93–95
[2017-09-03] MEDS: SODIUM CHLOR 0.9% 1000 ML INJ 1,000 ML IV SCH ×3 (03:07→20:43)
[2017-09-03] MEDS: HEPARIN SODIUM - SQ 10,000 UNITS/ML VIAL SQ SCH ×3 (03:07→18:18)
[2017-09-03] MEDS: cefTRIAXone INJ 2,000 MG in SODIUM CHLORIDE 0.9% INJ 100 ML IV SCH (05:23)
[2017-09-03 07:37] LABS: HEMATOCRIT 34.2 % (39.0-51.0); MEAN CELL VOLUME 89.8 FL (80.0-100.0); MEAN CORPUSCULAR HEMOGLOBIN 30.4 PG (27.0-34.0); MEAN CORPUSCULAR HGB CONC 33.8 % (32.0-36.0); PLATELET COUNT 142 TH/MM3 (150-450); RED BLOOD COUNT 3.81 MIL/MM3 (4.50-5.90); RED CELL DISTRIBUTION WIDTH 12.6 % (11.6-17.2); REVIEW FLAG FINAL; WHITE BLOOD COUNT 16.6 TH/MM3 (4.0-11.0)
[2017-09-03 08:01] LABS: BICARBONATE 23.7 MEQ/L (21.0-32.0); POTASSIUM 3.5 MEQ/L (3.5-5.1)
[2017-09-03] MEDS: SODIUM CHLORIDE 0.9% FLUSH 10 ML FLUSH IV FLUSH SCH ×2 (09:00→20:42)
[2017-09-03] MEDS: DOCUSATE SODIUM 50 MG/SENNA 8.6 MG TAB PO SCH ×2 (09:30→20:42)
[2017-09-03] MEDS: CITALOPRAM HYDROBROMIDE 20 MG TAB PO SCH (09:30)
[2017-09-03] MEDS: LOSARTAN 50 MG TAB PO SCH (09:31)
--- NOTE | 2017-09-03 10:05 | HHI.FPPN ---
Subjective Remarks No acute events overnight. Today endorses persistent left testicular pain, overall he feels it's about the same as when he came in. Any movement of testicle makes the pain worse. Denies chest pain, shortness of breath. Mild lower abdominal pain. (El Duong MD R2) Objective Vitals Vital Signs Date Time Temp Pulse Resp B/P (MAP) Pulse Ox O2 Delivery O2 Flow Rate FiO2 09/03/17 09:10 93 21 09/03/17 04:00 99.7 94 19 120/73 (89) 93 09/03/17 00:00 99.3 102 22 148/77 (100) 93 09/02/17 20:00 Room Air 09/02/17 20:00 101.2 104 21 164/79 (107) 94 09/02/17 17:36 98 21 09/02/17 16:28 102 19 158/72 (100) 98 09/02/17 15:58 105 18 164/78 (106) 94 09/02/17 15:28 98.2 111 17 168/74 (105) 95 09/02/17 12:00 100.2 96 18 149/71 (97) 93 09/02/17 10:45 95 I/O 09/02/17 09/02/17 09/02/17 09/03/17 09/03/17 09/03/17 07:00 15:00 23:00 07:00 15:00 23:00 Intake Total 320 ml 260 ml Output Total 800 ml 550 ml Balance -480 ml -290 ml Intake Oral 320 ml 260 ml Output Urine Total 800 ml 550 ml # Bowel Movements 0 0 (El Duong MD R2) Result Diagram: 09/03/17 0600 09/03/17 0600 Imaging Last Impressions Scrotum Ultrasound 09/03/17 0000 Signed Impressions: Service Date/Time: Sunday, September 03, 2017 11:41 - CONCLUSION: 1. Complex masslike area in the left epididymal tail with increased color Doppler flow likely represents epididymitis. 2. Small bilateral hydroceles. 3. Bilateral intratesticular echogenic foci unchanged. 4. No evidence of testicular torsion as there is symmetric color Doppler flow in the testicles and the testicles are symmetric in size. Carlos Baer MD Renal Biopsy CT 09/01/17 0000 Signed Impressions: Service Date/Time: Saturday, September 02, 2017 14:41 - CONCLUSION: Uncomplicated CT guided biopsy. Low Benites MD Abdomen/Pelvis CT 09/01/17 0000 Signed Impressions: Service Date/Time: August 13:16 - CONCLUSION: 1. 6.6 x 6.2 x 5.8 cm solid mass involving the lower pole of the right kidney. This should be considered malignant until proven otherwise. No involvement of the renal vein. No retroperitoneal adenopathy. The lesion is accessible percutaneously for biopsy. The lesion is too large for consideration for cryoablation. 2. Bilateral adrenal gland nodules which are nonspecific on this study. Adrenal gland protocol MRI could be considered to further evaluate. 3. No acute abnormality to explain the patient's pain. Eduardo Peter Jr., MD Objective Remarks GENERAL: Well-developed, well-nourished adult black male sitting up in bed in no acute distress CARDIOVASCULAR: NRRR. Normal S1/S2. No MRG RESPIRATORY: CTAB. No crackles or wheezes. GASTROINTESTINAL: Abdomen soft, non-distended, mildly tender to palpation in bilateral lower quadrants. No hepato-splenomegaly or palpable masses. GENITOURINARY: Right testicle mildly tender to palpation. Left testicle with epididymal and testicular tenderness worsened on elevation of testicle. L testicle firm with increased induration of skin from prior exam. No erythema. MUSCULOSKELETAL: Extremities without clubbing, cyanosis, or edema. NEUROLOGICAL: Awake and alert. Cranial nerves II through XII grossly intact. Moves all extremities without difficulty. Normal speech. Procedures CT guided renal Bx - 09/02/17 Medications and IVs Current Medications Medications (Trade) Dose Ordered Sig/Elva Route Start Time Stop Time Status Last Admin (Norvasc) 10 mg DAILY PO 09/01/17 16:15 09/03/17 09:30 (CeleXA) 10 mg DAILY PO 09/02/17 09:00 09/03/17 09:30 (Colace) 100 mg BID PRN PO 09/01/17 16:15 (Aricept) 10 mg HS PO 09/01/17 21:00 09/02/17 19:50 (Cozaar) 100 mg DAILY PO 09/01/17 16:15 09/03/17 09:31 (Hytrin) 2 mg HS PO 09/01/17 21:00 09/02/17 19:50 (Desyrel) 100 mg HS PO 09/01/17 21:00 09/02/17 19:51 (Pill Splitter) 1 ea UNSCH PRN OTHER 09/01/17 16:30 Sodium Chloride 1,000 ml @ 150 mls/hr Q6H40M IV 09/01/17 18:00 09/03/17 13:03 (NS Flush) 2 ml UNSCH PRN IV FLUSH 09/01/17 16:45 (NS Flush) 2 ml BID IV FLUSH 09/01/17 21:00 09/03/17 09:00 (Tylenol) 650 mg Q4H PRN PO 09/01/17 16:45 09/02/17 19:51 (Zofran Inj) 4 mg Q6H PRN IVP 09/01/17 16:45 (Ambien) 5 mg HS PRN PO 09/01/17 16:45 (Roxicodone) 5 mg Q6H PRN PO 09/01/17 16:45 09/03/17 09:33 (Narcan Inj) 0.4 mg UNSCH PRN IV PUSH 09/01/17 16:45 (Maria M-Colace) 1 tab BID PO 09/01/17 21:00 09/03/17 09:30 (Milk Of Magnesia Liq) 30 ml Q12H PRN PO 09/01/17 16:45 (Senokot) 17.2 mg Q12H PRN PO 09/01/17 16:45 (Dulcolax Supp) 10 mg DAILY PRN RECTAL 09/01/17 16:45 (Lactulose Liq) 30 ml DAILY PRN PO 09/01/17 16:45 (Heparin Inj) 5,000 units Q8H SQ 09/02/17 02:00 09/03/17 09:30 Piperacillin Sod/ Tazobactam Sod 100 ml @ 200 mls/hr Q6H IV 09/03/17 14:00 (El Duong MD R2) A/P Assessment and Plan 72 male with HTN, BPH presenting with: (El Duong MD R2) Attending Attestation Case reviewed and discussed with the resident team. Agree with plan of care as discussed with me and documented in the resident note. (Michelle Sánchez MD) Problem List: (1) Epididymitis, bilateral ICD Codes: N45.1 - Epididymitis Status: Acute Plan: Torsion ruled out by ultrasound Today's US more suggestive of epididymitis Initial scrotal US with extratesticular debris L scrotum - Tylenol 650 mg PRN moderate pain - Oxycodone 5 mg Q6H PRN severe pain - Zosyn as below for UTI and epididymitis coverage - For discharge antibiotic, would recommend Levaquin 750 mg PO daily x10-14 days if UCx shows sensitivity (2) Left testicular pain ICD Codes: N50.812 - Left testicular pain Status: Acute Plan: Secondary to epididymitis as above (3) UTI (urinary tract infection) ICD Codes: N39.0 - Urinary tract infection, site not specified Status: Acute Plan: Spiking fevers to 101-102 UA with positive nitrite and leukocyte esterase UCx with gram negative rods +leukocytosis - Due to spiking fevers and complicated UTI + epididymitis, expand coverage to Zosyn 4.5 gm IV Q6H - NS @ 150 cc/hr - F/u urine Cx specification & sensitivity - Trend CBC Antibiotic History Rocephin 09/01 - 09/03 Zosyn 09/03 - present (4) Renal mass ICD Codes: N28.89 - Other specified disorders of kidney and ureter Status: Acute Plan: Work-up for pelvic/groin pain revealed large renal mass on right kidney, high suspicion for malignancy - CT guided biopsy of renal mass done 09/02 - Pain control as above - Check PSA - Additional work-up based on results of biopsy (5) BPH (benign prostatic hyperplasia) ICD Codes: N40.0 - Benign prostatic hyperplasia without lower urinary tract symptoms Status: Chronic Plan: Stable symptoms, possibly exacerbated due to processes noted above - Continue home terazosin (6) Essential hypertension ICD Codes: I10 - Essential (primary) hypertension Status: Chronic Plan: Continue home losartan, amlodipine, terazosin (7) FEN/PPX Plan: Fluids: as above Electrolytes: Monitor and replace PRN Nutrition: Diet regular DVT prophylaxis: Heparin 5000 units TID Code status: Full code (El Duong MD R2) Problem Qualifiers (1) UTI (urinary tract infection): Qualified Codes: N30.00 - Acute cystitis without hematuria (2) BPH (benign prostatic hyperplasia): Qualified Codes: N40.1 - Benign prostatic hyperplasia with lower urinary tract symptoms; R39.12 - Poor urinary stream El Duong MD R2 Sep 03, 2017 10:05 Michelle Sánchez MD Sep 04, 2017 07:27
[2017-09-03] MEDS ORDERED: PIPERACIL-TAZO 3.375 GM PREMIX 50 ML IV SCH (12:00)
--- NOTE | 2017-09-03 12:32 | RADRPT ---
EXAM DATE/TIME: 09/03/2017 11:41 [facility] COMPARISON: US TESTICLE W/DOPPLER, September 01, 2017, 11:11. INDICATIONS : Worsened pain, rule out torsion. MEDICAL HISTORY : Hypertension. SURGICAL HISTORY : Bilateral hip replacement. Bialteral knee replacement. Left ankle surgery. ENCOUNTER: Subsequent ACUITY: 3 days PAIN SCORE: 6/10 LOCATION: Bilateral testicles. MEASUREMENTS: RIGHT TESTICLE: 5.3 x 4.1 x 2.7cm LEFT TESTICLE: 4.9 x 3.6 x 3.4cm FINDINGS: RIGHT TESTICLE: Multiple intratesticular hyperechoic foci unchanged. Dilated rete testis again noted. Normal color Do ppler flow. Epididymal head cysts again noted. Small right hydrocele. LEFT TESTICLE: Multiple intratesticular hyperechoic foci unchanged. Dilated rete chest is again noted. No complex ar ea of mixed echogenicity is again identified in the region of the left epididymal tail. There is incr eased color Doppler flow in this region. Findings suggest epididymitis. Small left hydrocele. CONCLUSION: 1. Complex masslike area in the left epididymal tail with increased color Doppler flow likely represe nts epididymitis. 2. Small bilateral hydroceles. 3. Bilateral intratesticular echogenic foci unchanged. 4. No evidence of testicular torsion as there is symmetric color Doppler flow in the testicles and th e testicles are symmetric in size. Carlos Baer MD on September 03, 2017 at 12:24 Board Certified Radiologist. This report was verified electronically.
[2017-09-03] MEDS: PIPERACIL-TAZO 4.5 GM PREMIX 100 ML IV SCH ×2 (14:00→20:42)
[2017-09-03] MEDS: traZODone HCL 100 MG TAB PO SCH (20:42)
[2017-09-03] MEDS: TERAZOSIN HCL 1 MG CAP PO SCH (20:42)
[2017-09-03] MEDS: DONEPEZIL HCL 5 MG TAB PO SCH (20:42)
[2017-09-04] VITALS (7 sets, daily range): BP systolic 138–166; BP diastolic 77–98; PULSE 83–99; RESP 16–18; TEMP 98.7–100; O2SAT 94–98
[2017-09-04] MEDS: PIPERACIL-TAZO 4.5 GM PREMIX 100 ML IV SCH ×4 (02:00→17:54)
[2017-09-04] MEDS: HEPARIN SODIUM - SQ 10,000 UNITS/ML VIAL SQ SCH ×3 (02:00→17:54)
[2017-09-04] MEDS: SODIUM CHLOR 0.9% 1000 ML INJ 1,000 ML IV SCH ×3 (04:51→19:41)
[2017-09-04] MEDS: CITALOPRAM HYDROBROMIDE 20 MG TAB PO SCH (08:51)
[2017-09-04] MEDS: LOSARTAN 50 MG TAB PO SCH (08:53)
[2017-09-04] MEDS: DOCUSATE SODIUM 50 MG/SENNA 8.6 MG TAB PO SCH ×2 (08:53→19:40)
[2017-09-04] MEDS: SODIUM CHLORIDE 0.9% FLUSH 10 ML FLUSH IV FLUSH SCH ×2 (09:00→19:41)
[2017-09-04 09:13] LABS: AUTOMATED NEUTROPHIL # 12.9 TH/MM3 (1.8-7.7); BASOPHIL % 0.2 % (0.0-2.0); EOSINOPHIL % 0.2 % (0.0-4.0); HEMATOCRIT 36.6 % (39.0-51.0); HEMO FLAGS DIFF FINAL; LYMPH % 9.4 % (9.0-44.0); LYMPHOCYTE # 1.4 TH/MM3 (1.0-4.8); MEAN CELL VOLUME 89.6 FL (80.0-100.0); MEAN CORPUSCULAR HEMOGLOBIN 29.7 PG (27.0-34.0); MEAN CORPUSCULAR HGB CONC 33.2 % (32.0-36.0); MONO % 5.8 % (0.0-8.0); NEUT % 84.4 % (16.0-70.0); PLATELET COUNT 181 TH/MM3 (150-450); RED BLOOD COUNT 4.08 MIL/MM3 (4.50-5.90); RED CELL DISTRIBUTION WIDTH 12.9 % (11.6-17.2); WHITE BLOOD COUNT 15.3 TH/MM3 (4.0-11.0)
--- NOTE | 2017-09-04 09:42 | HHI.FPPN ---
Subjective Remarks Patient seen and examined at bedside. No fevers overnight. Pt reports groin pain is slightly better today. Pt reports decreased appetite. He also states he has cramps in lower abdomen and has not had BM during this hospitalization so far. (Catherine Rivera MD, R1) Objective Vitals Vital Signs Date Time Temp Pulse Resp B/P (MAP) Pulse Ox O2 Delivery O2 Flow Rate FiO2 09/04/17 04:00 98.7 83 16 142/79 (100) 94 09/04/17 04:00 Room Air 09/04/17 00:00 99.6 85 17 138/78 (98) 94 09/04/17 00:00 Room Air 09/03/17 20:00 99.7 88 18 162/74 (103) 95 09/03/17 20:00 Room Air 09/03/17 16:00 98.8 89 18 154/79 (104) 94 09/03/17 12:00 99.9 93 20 153/80 (104) 95 09/03/17 11:40 17 I/O 09/03/17 09/03/17 09/03/17 09/04/17 09/04/17 09/04/17 07:00 15:00 23:00 07:00 15:00 23:00 Intake Total 260 ml 1000 ml 1840 ml 1820 ml Output Total 550 ml 490 ml 575 ml Balance -290 ml 1000 ml 1350 ml 1245 ml Intake Oral 260 ml 740 ml 720 ml IV Total 1000 ml 1100 ml 1100 ml Output Urine Total 550 ml 490 ml 575 ml # Bowel Movements 0 0 (Catherine Rivera MD, R1) Result Diagram: 09/04/17 0745 09/03/17 0600 Objective Remarks GENERAL: Well-developed, well-nourished adult black male sitting up in bed in no acute distress CARDIOVASCULAR: NRRR. Normal S1/S2. No MRG RESPIRATORY: CTAB. No crackles or wheezes. GASTROINTESTINAL: Abdomen soft, non-distended, mildly tender to palpation in bilateral lower quadrants. No hepato-splenomegaly or palpable masses. GENITOURINARY: Right testicle mildly tender to palpation. Left testicle with epididymal and testicular tenderness worsened on elevation of testicle. L testicle firm with increased induration of skin from prior exam. No erythema. Exam from yesterday. MUSCULOSKELETAL: Extremities without clubbing, cyanosis, or edema. NEUROLOGICAL: Awake and alert. Cranial nerves II through XII grossly intact. Moves all extremities without difficulty. Normal speech. Procedures CT guided renal Bx - 09/02/17 (Catherine Rivera MD, R1) A/P Assessment and Plan 72 male with HTN, BPH presenting with: (Catherine Rivera MD, R1) Attending Attestation Patient seen and examined. Case reviewed and discussed with the resident team. Agree with plan of care as discussed with me and documented in the resident note. (Michelle Sánchez MD) Problem List: (1) Epididymitis, bilateral ICD Codes: N45.1 - Epididymitis Status: Acute Plan: Torsion ruled out by ultrasound US on 09/03 more suggestive of epididymitis. Patient still complaining of groin/ testicular pain worse with ambulation. Initial scrotal US with extratesticular debris L scrotum - Tylenol 650 mg PRN moderate pain - Oxycodone 5 mg Q6H PRN severe pain - Zosyn as below for UTI and epididymitis coverage - For discharge antibiotic, would recommend Levaquin 750 mg PO daily x10-14 days if UCx shows sensitivity -Urology consulted for further evaluation of groin pain, recommendations appreciated (2) Left testicular pain ICD Codes: N50.812 - Left testicular pain Status: Acute Plan: Secondary to epididymitis as above (3) UTI (urinary tract infection) ICD Codes: N39.0 - Urinary tract infection, site not specified Status: Acute Plan: No fevers overnight, Tmax: 99.9 UA on 09/01 with positive nitrite and leukocyte esterase UCx positive for E. coli +leukocytosis - Due to previous spiking of fevers and complicated UTI + epididymitis, coverage expanded to Zosyn 4.5 gm IV Q6H - NS @ 150 cc/hr - urine Cx positive for E. coli & sensitive to zosyn - Trend CBC, WBC- 15.3 on 09/04, down trending - f/u repeat UA Antibiotic History Rocephin 09/01 - 09/03 Zosyn 09/03 - present (4) Renal mass ICD Codes: N28.89 - Other specified disorders of kidney and ureter Status: Acute Plan: Work-up for pelvic/groin pain revealed large renal mass on right kidney, high suspicion for malignancy - CT guided biopsy of renal mass done 09/02 - Pain control as above - PSA- 0.42 - Additional work-up based on results of biopsy (5) BPH (benign prostatic hyperplasia) ICD Codes: N40.0 - Benign prostatic hyperplasia without lower urinary tract symptoms Status: Chronic Plan: Stable symptoms, possibly exacerbated due to processes noted above - Continue home terazosin (6) Essential hypertension ICD Codes: I10 - Essential (primary) hypertension Status: Chronic Plan: Continue home losartan, amlodipine, terazosin (7) Constipation ICD Codes: K59.00 - Constipation, unspecified Status: Chronic Plan: Patient with hx of constipation. He stated he takes laxatives daily at home -No BM since admission 09/01 -lactulose 30ml increased to BID scheduled -c/w PRN: senna 1 tab BID, senokot 17.2mg BID, colase 100mg BID, milk of magnesia 30ml BID (8) FEN/PPX Plan: Fluids: 150mls/hr Electrolytes: K-3.3, given kcl po 40mg x1 today, monitor and replace PRN, Nutrition: Diet regular DVT prophylaxis: Heparin 5000 units TID Code status: Full code (Catherine Rivera MD, R1) Problem Qualifiers (1) UTI (urinary tract infection): Qualified Codes: N30.00 - Acute cystitis without hematuria (2) BPH (benign prostatic hyperplasia): Qualified Codes: N40.1 - Benign prostatic hyperplasia with lower urinary tract symptoms; R39.12 - Poor urinary stream Catherine Rivera MD, R1 Sep 04, 2017 09:42 Michelle Sánchez MD Sep 05, 2017 09:10
[2017-09-04 09:46] LABS: BICARBONATE 21.7 MEQ/L (21.0-32.0); POTASSIUM 3.3 MEQ/L (3.5-5.1)
[2017-09-04] MEDS ORDERED: POTASSIUM CHLORIDE 20 MEQ CONTROLLED RELEASE TAB PO ONE (11:45)
--- NOTE | 2017-09-04 13:29 | MB ---
cc: MARIIA MCDONNELL DATE OF CONSULTATION: 09/04/2017 REASON FOR CONSULTATION: HISTORY OF PRESENT ILLNESS: Mr. Huang is a pleasant 72-year-old male presented with fever and chills, lower abdominal pain and left-sided hemiscrotal pain over the last few days. The patient notes that he has had a weak stream for over the past year. He states he gets five to seven times at night with episodes of incomplete emptying. He denies any gross hematuria or history of stones. He does note that he is constipated and he did have a bowel movement today but his last bowel movement was last week. CT scan was performed demonstrating a 6.6 x 6.2 x 5.8 solid mass involving the lower pole of the right kidney without evidence of retroperitoneal adenopathy. Bilateral adrenal gland nodules which are nonspecific were also noted. Scrotal ultrasound demonstrated evidence of epididymitis on the left side with increased flow to this region. PAST MEDICAL HISTORY: His medical history includes: 1. Hypertension 2. BPH 3. Depression 4. Hypercholesterolemia. Denies diabetes and denies chest pain. ALLERGIES: NO KNOWN DRUG ALLERGIES MEDICATIONS: Please refer to the chart. PAST SURGICAL HISTORY: 1. Bilateral hips replaced. 2. Ankle joaquina on the left. 3. Bilateral knee replacement. FAMILY HISTORY: Mother with history of kidney failure. Father had a history of prostate cancer. SOCIAL HISTORY: He quit smoking approximately four years ago. Denies alcohol or drugs. REVIEW OF SYSTEMS: Notes abdominal pain, left-sided testicular pain. Notes incomplete bladder emptying with a weak stream and nocturia. Denies chest pain, shortness of breath, does note constipation but denies diarrhea. Denies gait disturbance, bleeding disorder, denies skin lesions. Notes a history of depression. The remaining review of systems were reviewed and are negative. PHYSICAL EXAMINATION: Vital signs today, temperature is 98.7, heart rate 99, respiratory rate 16, blood pressure 157/78, 94% on room air. GENERAL: He is well-developed, well-nourished 72-year-old male in no acute distress. HEENT: Normocephalic, atraumatic. Pupils equal round, regular, react to light. Extraocular movements intact. Neck: Supple. Heart: Regular rate and rhythm. Lungs: Clear. Abdomen: Soft. There is some generalized suprapubic tenderness. There is no rebound or guarding. Genitalia: Uncircumcised phallus, left hemiscrotum is indurated and painful to touch with some erythema and pain along the cord, right testicles normal. His rectal exam shows a 40 grams prostate smooth. There is no nodularity. Extremities: Show no cyanosis, clubbing or edema. Neuro: Cranial nerves II-XII are intact. Skin: There is no lesions. Psych: Generalized mood is noted. LABORATORY DATA: White count is 15.3, hemoglobin 12.1, hematocrit 36.6, platelet count of 181, sodium 136, potassium 3.48, chloride 106, CO2 21.7, BUN of 8, creatinine 0.9, glucose of 92, PT is 11.8, INR is 1.1, PTT is 36.6. Urinalysis shows large leukoesterase, nitrate is positive, numerous white cells are noted and 91 red cells are noted. Urine culture currently shows E. Coli. IMAGING STUDIES: Consistent with left epididymal orchitis and right-sided renal mass approximately 6 cm in size, concerning for malignancy. ASSESSMENT: The patient is a 72 year-old male with findings of left-sided epididymal orchitis with history of BPH with obstruction and findings of a right lower pole new mass. RECOMMENDATIONS: 1. Recommend MRI to evaluate the right-sided renal mass as well as the adrenal nodule. 2. Start Flomax 0.4 mg p.o. q.h.s. to help with the patient's BPH, and urinary tract symptoms. 3. Epididymal orchitis of left hemiscrotum, continue IV antibiotics for now, will check a bladder scanner on the floor to make sure the patient is emptying and not in retention. Will follow with you. Thank for the consult and allowing me to participate in the care of this patient. Mariia WOODALL/MARGE /12:59 PM /1:21 PM
[2017-09-04] MEDS: TAMSULOSIN HCL 0.4 MG CAP PO SCH (14:28)
[2017-09-04 15:22] LABS: BLOOD, URINE SMALL (NEG); GLUCOSE,URINE NEG (NEG); KETONE, URINE TRACE mg/dL (NEG); NITRITE,URINE NEG (NEG); PH, URINE 6.5 (5.0-8.5); URINE COLOR YELLOW (YELLW/STRAW)
[2017-09-04 16:10] LABS: BACTERIA, URINE FEW /hpf; COMMENT (UR) CULTURE INDICATED; CULTURE IF INDICATED CULTURE INDICATED; RBC, URINE 0-3 /hpf (0-3); WBC, URINE 15-19 /hpf (0-5)
[2017-09-04] MEDS: LACTULOSE SYRUP 20 GM/30 ML CUP PO SCH (17:54)
[2017-09-04] MEDS: traZODone HCL 100 MG TAB PO SCH (19:39)
[2017-09-04] MEDS: ACETAMINOPHEN 325 MG TAB PO PRN (19:39)
[2017-09-04] MEDS: DONEPEZIL HCL 5 MG TAB PO SCH (19:39)
[2017-09-04] MEDS: TERAZOSIN HCL 1 MG CAP PO SCH (19:39)
[2017-09-05] VITALS: BP 139/77; PULSE 74; RESP 16; TEMP 98.9; O2SAT 96
[2017-09-05] MEDS: SODIUM CHLOR 0.9% 1000 ML INJ 1,000 ML IV SCH ×4 (01:22→18:12)
[2017-09-05] MEDS: PIPERACIL-TAZO 4.5 GM PREMIX 100 ML IV SCH ×4 (01:23→21:16)
[2017-09-05] MEDS: HEPARIN SODIUM - SQ 10,000 UNITS/ML VIAL SQ SCH ×3 (01:29→18:13)
[2017-09-05 04:00] VITALS: BP 145/69; PULSE 81; RESP 16; TEMP 99.2; O2SAT 96
[2017-09-05 05:04] LABS: AUTOMATED NEUTROPHIL # 8.8 TH/MM3 (1.8-7.7); BASOPHIL # 0.1 TH/MM3 (0-0.2); BASOPHIL % 0.5 % (0.0-2.0); EOSINOPHIL # 0.1 TH/MM3 (0-0.4); EOSINOPHIL % 0.9 % (0.0-4.0); HEMATOCRIT 33.3 % (39.0-51.0); HEMO FLAGS DIFF FINAL; LYMPH % 11.5 % (9.0-44.0); LYMPHOCYTE # 1.3 TH/MM3 (1.0-4.8); MEAN CORPUSCULAR HEMOGLOBIN 29.6 PG (27.0-34.0); MEAN CORPUSCULAR HGB CONC 33.3 % (32.0-36.0); MONO % 8.1 % (0.0-8.0); PLATELET COUNT 185 TH/MM3 (150-450); RED BLOOD COUNT 3.74 MIL/MM3 (4.50-5.90); RED CELL DISTRIBUTION WIDTH 12.6 % (11.6-17.2); WHITE BLOOD COUNT 11.2 TH/MM3 (4.0-11.0)
[2017-09-05] MEDS: LACTULOSE SYRUP 20 GM/30 ML CUP PO SCH ×2 (05:20→18:13)
[2017-09-05] MEDS: ACETAMINOPHEN 325 MG TAB PO PRN ×2 (05:24→13:16)
[2017-09-05 05:27] LABS: ALT (GPT) 19 U/L (12-78); ANION GAP 10 MEQ/L (5-15); AST (GOT) 23 U/L (15-37); BICARBONATE 24.4 MEQ/L (21.0-32.0); BLOOD UREA NITROGEN 5 MG/DL (7-18); CHLORIDE 105 MEQ/L (98-107); GLOMERULAR FILTRATION RATE 100 ML/MIN (>89); POTASSIUM 3.3 MEQ/L (3.5-5.1); SODIUM (NA) 139 MEQ/L (136-145)
[2017-09-05 05:30] LABS: ALKALINE PHOSPHATASE 63 U/L (45-117); TOTAL BILIRUBIN ADULT 0.5 MG/DL (0.2-1.0)
[2017-09-05] MEDS ORDERED: GADODIAMIDE PF 287 MG/ML 5 ML VIAL (for RAD MRI) IV PUSH ONE (07:11)
[2017-09-05 08:04] VITALS: BP 157/81; PULSE 94; RESP 17; TEMP 98.3; O2SAT 98
[2017-09-05] MEDS: LOSARTAN 50 MG TAB PO SCH (08:45)
[2017-09-05] MEDS: CITALOPRAM HYDROBROMIDE 20 MG TAB PO SCH (08:45)
[2017-09-05] MEDS: TAMSULOSIN HCL 0.4 MG CAP PO SCH (08:45)
[2017-09-05] MEDS: DOCUSATE SODIUM 50 MG/SENNA 8.6 MG TAB PO SCH ×2 (08:46→21:18)
[2017-09-05] MEDS: SODIUM CHLORIDE 0.9% FLUSH 10 ML FLUSH IV FLUSH SCH ×2 (08:47→21:00)
--- NOTE | 2017-09-05 09:09 | HHI.FPPN ---
Subjective Remarks Patient seen and examined at bedside. Pt stated he had night sweats overnight, soaking through his sheets. Report improved groin and lower abdominal pain. Ambulating better with improved pain. Pt is also still reporting decreased appetite. He had 2 BM yesterday. Denies CP, SOB, N/V, or back pain. (Catherine Rivera MD, R1) Objective Vitals Vital Signs Date Time Temp Pulse Resp B/P (MAP) Pulse Ox O2 Delivery O2 Flow Rate FiO2 09/05/17 08:04 98.3 94 17 157/81 (106) 98 09/05/17 04:00 99.2 81 16 145/69 (94) 96 09/05/17 04:00 Room Air 09/05/17 00:00 Room Air 09/05/17 00:00 98.9 74 16 139/77 (97) 96 09/04/17 20:00 100.0 94 16 160/77 (104) 97 09/04/17 20:00 Room Air 09/04/17 16:00 99.1 92 18 166/98 (120) 97 09/04/17 12:00 99.3 91 17 158/79 (105) 98 09/04/17 11:01 95 21 I/O 09/04/17 09/04/17 09/04/17 09/05/17 09/05/17 09/05/17 07:00 15:00 23:00 07:00 15:00 23:00 Intake Total 1820 ml 200 ml 2060 ml 720 ml Output Total 575 ml 775 ml Balance 1245 ml 200 ml 2060 ml -55 ml Intake Oral 720 ml 960 ml 720 ml IV Total 1100 ml 200 ml 1100 ml Output Urine Total 575 ml 775 ml (Catherine Rivera MD, R1) Result Diagram: 09/05/17 0436 09/05/17 0436 Objective Remarks GENERAL: Well-developed, well-nourished adult black male sitting up in bed in no acute distress CARDIOVASCULAR: NRRR. Normal S1/S2. No MRG RESPIRATORY: CTAB. No crackles or wheezes. GASTROINTESTINAL: Abdomen soft, non-distended, mildly tender to palpation in bilateral lower quadrants. No hepato-splenomegaly or palpable masses. GENITOURINARY: Right testicle mildly tender to palpation. Left testicle with epididymal and testicular tenderness worsened on elevation of testicle. L testicle firm with increased induration of skin from prior exam. No erythema. Exam from Tuesday. MUSCULOSKELETAL: Extremities without clubbing, or cyanosis. Trace edema in LE BL. NEUROLOGICAL: Awake and alert. Cranial nerves II through XII grossly intact. Moves all extremities without difficulty. Normal speech. Procedures CT guided renal Bx - 09/02/17 (Catherine Rivera MD, R1) A/P Assessment and Plan 72 male with HTN, BPH presenting with: (Catherine Rivera MD, R1) Attending Attestation Patient seen and examined. Case reviewed and discussed with the resident team. Agree with plan of care as discussed with me and documented in the resident note. (Michelle Sánchez MD) Problem List: (1) Epididymitis, bilateral ICD Codes: N45.1 - Epididymitis Status: Acute Plan: Torsion ruled out by ultrasound US on 09/03 more suggestive of epididymitis. Patient still complaining of groin/ testicular pain worse with ambulation. Initial scrotal US with extratesticular debris L scrotum - Tylenol 650 mg PRN moderate pain - Oxycodone 5 mg Q6H PRN severe pain - Zosyn as below for UTI and epididymitis coverage - For discharge antibiotic, would recommend Levaquin 750 mg PO daily x10-14 days if UCx shows sensitivity -Urology following, recommendations appreciated -Pt to have MRI to evaluate Right sided renal mass and adrenal nodule -f/u post void bladder scan to evaluate for retention - Pt started on flomax 0.4mg QD for BPH sxs (2) Left testicular pain ICD Codes: N50.812 - Left testicular pain Status: Acute Plan: Secondary to epididymitis as above (3) UTI (urinary tract infection) ICD Codes: N39.0 - Urinary tract infection, site not specified Status: Acute Plan: No fevers overnight, Tmax: 100 -UA on 09/01 with positive nitrite and leukocyte esterase UCx positive for E. coli, +leukocytosis - Due to previous spiking of fevers and complicated UTI + epididymitis, coverage expanded to Zosyn 4.5 gm IV Q6H - NS @ 150 cc/hr - urine Cx positive for E. coli & sensitive to zosyn - Trend CBC, WBC- 11.2 on 09/05, down trending - Repeat UA 09/04 positive for leukocyte esterase and urine WBC 15-19, neg nitrite UCx pending Antibiotic History Rocephin 09/01 - 09/03 Zosyn 09/03 - present (4) Renal mass ICD Codes: N28.89 - Other specified disorders of kidney and ureter Status: Acute Plan: Work-up for pelvic/groin pain revealed large renal mass on right kidney, high suspicion for malignancy - CT guided biopsy of renal mass done 09/02 - Pain control as above - PSA- 0.42 - Additional work-up based on results of biopsy (5) BPH (benign prostatic hyperplasia) ICD Codes: N40.0 - Benign prostatic hyperplasia without lower urinary tract symptoms Status: Chronic Plan: Stable symptoms, possibly exacerbated due to processes noted above -Continue home terazosin - c/w flomax - f/u post void bladder scan (6) Essential hypertension ICD Codes: I10 - Essential (primary) hypertension Status: Chronic Plan: Continue home losartan, amlodipine, terazosin (7) Constipation ICD Codes: K59.00 - Constipation, unspecified Status: Chronic Plan: Patient with hx of constipation. He stated he takes laxatives daily at home -Pt had 2 BM yesterday, prior to day 1 wk without BM -lactulose 30ml increased to BID scheduled -c/w PRN: senna 1 tab BID, senokot 17.2mg BID, colase 100mg BID, milk of magnesia 30ml BID (8) FEN/PPX Plan: Fluids: 150mls/hr Electrolytes: K-3.3, given kcl po 60mg x1 today, monitor and replace PRN, Nutrition: Diet regular DVT prophylaxis: Heparin 5000 units TID Code status: Full code (Catherine Rivera MD, R1) Problem Qualifiers (1) UTI (urinary tract infection): Qualified Codes: N30.00 - Acute cystitis without hematuria (2) BPH (benign prostatic hyperplasia): Qualified Codes: N40.1 - Benign prostatic hyperplasia with lower urinary tract symptoms; R39.12 - Poor urinary stream Catherine Rivera MD, R1 Sep 05, 2017 09:09 Michelle Sánchez MD Sep 05, 2017 15:31
[2017-09-05] MEDS ORDERED: POTASSIUM CHLORIDE 10 MEQ CAP PO ONE (09:30)
--- NOTE | 2017-09-05 11:53 | RADRPT ---
EXAM DATE/TIME: 09/05/2017 08:39 [facility] COMPARISON: CT NEEDLE BIOPSY RENAL, RIGHT, September 02, 2017, 14:41. CT ABDOMEN & PELVIS W CONTRAST, August, 13:16. INDICATIONS : Bilaterla adrenal masses. CONTRAST: 23 cc Omniscan (gadodiamide) IV MEDICAL HISTORY : Hypertension. SURGICAL HISTORY : Bilat hip, Rt knee, Lt ankle ENCOUNTER: Subsequent ACUITY: 4-6 days PAIN SCORE: 0/10 LOCATION: abdomen TECHNIQUE: Multiplanar, multisequence magnetic resonance imaging of the abdomen was performed without and with i ntravenous contrast. FINDINGS: LIVER: Normal size with normal signal intensity. No lesion is identified. Portal vein is within normal limi ts. BILIARY: There is no intra- or extra-hepatic biliary ductal dilatation. Gallbladder contains no stones. SPLEEN: Within normal limits. PANCREAS: Within normal limits. ADRENALS: There is a small right adrenal gland mass arising from the lateral limb measuring approximately 13 mm . It demonstrates signal loss on out of phase imaging characteristics of an adenoma. The left adrenal gland mass measures 16 mm and arises from the body. There is also mild thickening of the lateral garay b. There is artifact extending across the body of the adrenal gland but no definite signal loss is ap preciated. Both adrenal glands enhance homogeneously. KIDNEYS: There is a heterogeneous T1 and T2 signal mass arising from the right lower pole kidney measuring 5.9 x 6.3 x 5.6 cm. No macroscopic fat is identified within the lesion. Based on subtraction imaging, th ere is a small amount of enhancement along the periphery of the mass while most of the central aspect of the mass lacks enhancement. There is no hydronephrosis. No other renal lesion is present. OTHER: Aorta is nonaneurysmal. There is no lymphadenopathy. CONCLUSION: 1. The right adrenal gland mass measures approximately 13 mm and has features suggestive of an adrena l adenoma. Left adrenal gland mass measures approximately 16 mm. It is less than optimally visualized due to artifact but no definite imaging characteristics are present to confidently diagnose it as an adenoma. Suggest correlating with any prior outside imaging studies. If none are available could als o consider noninvasive evaluation with adrenal protocol CT with and without intravenous contrast. 2. There is a 6.3 cm heterogeneous mass in the right lower pole kidney. There is enhancement along th e periphery of the mass making it suspicious for a renal cell carcinoma. There are likely blood produ cts within the mass centrally. Gabino Jackson MD on September 05, 2017 at 11:41 Board Certified Radiologist. This report was verified electronically.
[2017-09-05 12:24] VITALS: BP 147/75; PULSE 81; RESP 18; TEMP 99.3; O2SAT 97
--- NOTE | 2017-09-05 12:57 | HHI.PR ---
Subjective Patient symptoms today Pt seen and examined. C/o headace since admission. Denies headaces at home. Voiding better on Flomax. MRI reviewed and concerning for Right LP renal mass./ RCC. It enhances with contrast. Objective Vital Signs Vital Signs Date Time Temp Pulse Resp B/P (MAP) Pulse Ox O2 Delivery O2 Flow Rate FiO2 09/05/17 12:24 99.3 81 18 147/75 (99) 97 09/05/17 08:04 98.3 94 17 157/81 (106) 98 09/05/17 04:00 99.2 81 16 145/69 (94) 96 09/05/17 04:00 Room Air 09/05/17 00:00 Room Air 09/05/17 00:00 98.9 74 16 139/77 (97) 96 09/04/17 20:00 100.0 94 16 160/77 (104) 97 09/04/17 20:00 Room Air 09/04/17 16:00 99.1 92 18 166/98 (120) 97 Intake & Output 09/05/17 09/05/17 07:00 19:00 Intake Total 2680 ml Output Total 775 ml Balance 1905 ml Intake Oral 1680 ml IV Total 1000 ml Output Urine Total 775 ml Result Diagram: 09/05/17 0436 09/05/17 0436 Imaging Last 24 hours Impressions Abdomen MRI 09/05/17 0000 Signed Impressions: Service Date/Time: Tuesday, September 05, 2017 08:39 - CONCLUSION: 1. The right adrenal gland mass measures approximately 13 mm and has features suggestive of an adrenal adenoma. Left adrenal gland mass measures approximately 16 mm. It is less than optimally visualized due to artifact but no definite imaging characteristics are present to confidently diagnose it as an adenoma. Suggest correlating with any prior outside imaging studies. If none are available could also consider noninvasive evaluation with adrenal protocol CT with and without intravenous contrast. 2. There is a 6.3 cm heterogeneous mass in the right lower pole kidney. There is enhancement along the periphery of the mass making it suspicious for a renal cell carcinoma. There are likely blood products within the mass centrally. Gabino Jackson MD Objective Remarks Abd:soft,nt,nd Scrotum: tender in left hemiscrotum with induration Medications and IVs Current Medications Medications (Trade) Dose Ordered Sig/Elva Route Start Time Stop Time Status Last Admin (Norvasc) 10 mg DAILY PO 09/01/17 16:15 09/05/17 08:45 (CeleXA) 10 mg DAILY PO 09/02/17 09:00 09/05/17 08:45 (Colace) 100 mg BID PRN PO 09/01/17 16:15 (Aricept) 10 mg HS PO 09/01/17 21:00 09/04/17 19:39 (Cozaar) 100 mg DAILY PO 09/01/17 16:15 09/05/17 08:45 (Hytrin) 2 mg HS PO 09/01/17 21:00 09/04/17 19:39 (Desyrel) 100 mg HS PO 09/01/17 21:00 09/04/17 19:39 (Pill Splitter) 1 ea UNSCH PRN OTHER 09/01/17 16:30 Sodium Chloride 1,000 ml @ 150 mls/hr Q6H40M IV 09/01/17 18:00 09/05/17 08:48 (NS Flush) 2 ml UNSCH PRN IV FLUSH 09/01/17 16:45 (NS Flush) 2 ml BID IV FLUSH 09/01/17 21:00 09/04/17 19:41 (Tylenol) 650 mg Q4H PRN PO 09/01/17 16:45 09/05/17 05:24 (Zofran Inj) 4 mg Q6H PRN IVP 09/01/17 16:45 (Ambien) 5 mg HS PRN PO 09/01/17 16:45 (Roxicodone) 5 mg Q6H PRN PO 09/01/17 16:45 09/05/17 08:49 (Narcan Inj) 0.4 mg UNSCH PRN IV PUSH 09/01/17 16:45 (Maria M-Colace) 1 tab BID PO 09/01/17 21:00 09/04/17 19:40 (Milk Of Magnesia Liq) 30 ml Q12H PRN PO 09/01/17 16:45 09/04/17 08:54 (Senokot) 17.2 mg Q12H PRN PO 09/01/17 16:45 09/03/17 18:27 (Dulcolax Supp) 10 mg DAILY PRN RECTAL 09/01/17 16:45 (Heparin Inj) 5,000 units Q8H SQ 09/02/17 02:00 09/05/17 08:47 Piperacillin Sod/ Tazobactam Sod 100 ml @ 200 mls/hr Q6H IV 09/03/17 14:00 09/05/17 08:45 (Lactulose Liq) 30 ml Q12H PO 09/04/17 18:00 09/04/17 17:54 (Flomax) 0.4 mg DAILY PO 09/04/17 13:00 09/05/17 08:45 Assessment and Plan Assessment and Plan 72 y.o male with left epididymal-orchitis and BPH with obstruction and RLP renal mass concerning for RCC on recent MRI Continue IV abx to treat left epididymal-orchitis with warm compresses to area Continue Flomax for BPH RLP renal mass concerning for RCC. Renal Bx is only 70% accurate. Will need to f/u as outpt. Damien Clark DO Sep 05, 2017 12:57
[2017-09-05 16:04] VITALS: BP 149/85; PULSE 80; RESP 18; TEMP 99.4; O2SAT 95
[2017-09-05 20:00] VITALS: BP_SYST 150; BP_SYST 151; BP_DIAS 73; BP_DIAS 87; PULSE 81; PULSE 92; RESP 16; TEMP 98.4; TEMP 99.9; O2SAT 97; O2SAT 99
[2017-09-05] MEDS: DONEPEZIL HCL 5 MG TAB PO SCH (21:00)
[2017-09-05] MEDS: TERAZOSIN HCL 1 MG CAP PO SCH (21:17)
[2017-09-05] MEDS: traZODone HCL 100 MG TAB PO SCH (21:17)
[2017-09-06] VITALS: BP 166/82; PULSE 81; RESP 16; TEMP 98.7; O2SAT 96
[2017-09-06] MEDS: PIPERACIL-TAZO 4.5 GM PREMIX 100 ML IV SCH ×2 (03:04→08:23)
[2017-09-06] MEDS: HEPARIN SODIUM - SQ 10,000 UNITS/ML VIAL SQ SCH ×2 (03:04→11:16)
[2017-09-06] MEDS: SODIUM CHLOR 0.9% 1000 ML INJ 1,000 ML IV SCH ×2 (03:05→08:23)
[2017-09-06 04:00] VITALS: BP 155/85; PULSE 92; RESP 20; TEMP 93.4; O2SAT 98
[2017-09-06 05:33] LABS: AUTOMATED NEUTROPHIL # 8.2 TH/MM3 (1.8-7.7); BASOPHIL % 0.4 % (0.0-2.0); EOSINOPHIL # 0.1 TH/MM3 (0-0.4); EOSINOPHIL % 1.4 % (0.0-4.0); HEMATOCRIT 34.4 % (39.0-51.0); HEMO FLAGS DIFF FINAL; LYMPH % 13.2 % (9.0-44.0); LYMPHOCYTE # 1.4 TH/MM3 (1.0-4.8); MEAN CELL VOLUME 88.9 FL (80.0-100.0); MEAN CORPUSCULAR HEMOGLOBIN 30.6 PG (27.0-34.0); MEAN CORPUSCULAR HGB CONC 34.5 % (32.0-36.0); MONO % 9.6 % (0.0-8.0); NEUT % 75.4 % (16.0-70.0); PLATELET COUNT 204 TH/MM3 (150-450); RED BLOOD COUNT 3.87 MIL/MM3 (4.50-5.90); RED CELL DISTRIBUTION WIDTH 12.7 % (11.6-17.2); WHITE BLOOD COUNT 10.9 TH/MM3 (4.0-11.0)
[2017-09-06 06:06] LABS: BICARBONATE 23.1 MEQ/L (21.0-32.0); POTASSIUM 3.4 MEQ/L (3.5-5.1)
[2017-09-06] MEDS: LACTULOSE SYRUP 20 GM/30 ML CUP PO SCH (06:15)
[2017-09-06 08:00] VITALS: BP 156/85; PULSE 84; RESP 20; TEMP 99.2; O2SAT 96
[2017-09-06] MEDS: DOCUSATE SODIUM 50 MG/SENNA 8.6 MG TAB PO SCH (08:19)
[2017-09-06] MEDS: CITALOPRAM HYDROBROMIDE 20 MG TAB PO SCH (08:23)
[2017-09-06] MEDS: LOSARTAN 50 MG TAB PO SCH (08:23)
[2017-09-06] MEDS: TAMSULOSIN HCL 0.4 MG CAP PO SCH (08:23)
[2017-09-06] MEDS: SODIUM CHLORIDE 0.9% FLUSH 10 ML FLUSH IV FLUSH SCH (08:24)
[2017-09-06] MEDS ORDERED: GADODIAMIDE PF 287 MG/ML 5 ML VIAL (for RAD MRI) IV PUSH ONE (10:16)
[2017-09-06 10:40] VITALS: O2SAT 97
--- NOTE | 2017-09-06 11:27 | HHI.FPPN ---
Subjective Remarks No acute events overnight. Vital signs within normal limits and stable, except mildly hypertensive. Overall feels much better than yesterday. Decreased testicular and lower abdominal pain. Denies chest pain, shortness of breath. (El Duong MD R2) Objective Vitals Vital Signs Date Time Temp Pulse Resp B/P (MAP) Pulse Ox O2 Delivery O2 Flow Rate FiO2 09/06/17 10:40 97 09/06/17 08:00 99.2 84 20 156/85 (108) 96 09/06/17 04:00 93.4 92 20 155/85 (108) 98 09/06/17 00:00 98.7 81 16 166/82 (110) 96 09/05/17 20:00 99.9 81 16 150/87 (108) 97 09/05/17 19:45 Room Air 09/05/17 16:04 99.4 80 18 149/85 (106) 95 09/05/17 12:24 99.3 81 18 147/75 (99) 97 I/O 09/05/17 09/05/17 09/05/17 09/06/17 09/06/17 09/06/17 07:00 15:00 23:00 07:00 15:00 23:00 Intake Total 720 ml 200 ml 480 ml 1240 ml Output Total 775 ml 3200 ml Balance -55 ml 200 ml -2720 ml 1240 ml Intake Oral 720 ml 480 ml 240 ml IV Total 200 ml 1000 ml Output Urine Total 775 ml 3200 ml Bladder Scan Volume Amount 75 ml # Voids 4 # Bowel Movements 0 4 (El Duong MD R2) Result Diagram: 09/06/175 09/06/17 0405 Imaging Last Impressions Pelvis MRI 09/06/17 0000 Signed Impressions: Service Date/Time: Wednesday, September 06, 2017 09:44 - CONCLUSION: 1. Marked enhancement of the epididymis on the left side. Definite fullness of the left inguinal canal compared to the right may be in part of a component of a varicoseal. It does not have the appearance of bowel on this exam or on the recently performed CT scan. 2. Bilateral hydroceles. Gutierrez Velasquez MD Abdomen MRI 09/05/17 0000 Signed Impressions: Service Date/Time: Tuesday, September 05, 2017 08:39 - CONCLUSION: 1. The right adrenal gland mass measures approximately 13 mm and has features suggestive of an adrenal adenoma. Left adrenal gland mass measures approximately 16 mm. It is less than optimally visualized due to artifact but no definite imaging characteristics are present to confidently diagnose it as an adenoma. Suggest correlating with any prior outside imaging studies. If none are available could also consider noninvasive evaluation with adrenal protocol CT with and without intravenous contrast. 2. There is a 6.3 cm heterogeneous mass in the right lower pole kidney. There is enhancement along the periphery of the mass making it suspicious for a renal cell carcinoma. There are likely blood products within the mass centrally. Gabino Jackson MD Scrotum Ultrasound 09/03/17 0000 Signed Impressions: Service Date/Time: Sunday, September 03, 2017 11:41 - CONCLUSION: 1. Complex masslike area in the left epididymal tail with increased color Doppler flow likely represents epididymitis. 2. Small bilateral hydroceles. 3. Bilateral intratesticular echogenic foci unchanged. 4. No evidence of testicular torsion as there is symmetric color Doppler flow in the testicles and the testicles are symmetric in size. Carlos Baer MD Renal Biopsy CT 09/01/17 0000 Signed Impressions: Service Date/Time: Saturday, September 02, 2017 14:41 - CONCLUSION: Uncomplicated CT guided biopsy. Low Benites MD Abdomen/Pelvis CT 09/01/17 0000 Signed Impressions: Service Date/Time: August 13:16 - CONCLUSION: 1. 6.6 x 6.2 x 5.8 cm solid mass involving the lower pole of the right kidney. This should be considered malignant until proven otherwise. No involvement of the renal vein. No retroperitoneal adenopathy. The lesion is accessible percutaneously for biopsy. The lesion is too large for consideration for cryoablation. 2. Bilateral adrenal gland nodules which are nonspecific on this study. Adrenal gland protocol MRI could be considered to further evaluate. 3. No acute abnormality to explain the patient's pain. Eduardo Peter Jr., MD Objective Remarks GENERAL: Well-developed, well-nourished adult black male sitting up in bed in no acute distress CARDIOVASCULAR: NRRR. Normal S1/S2. No MRG RESPIRATORY: CTAB. No crackles or wheezes. GASTROINTESTINAL: Abdomen soft, non-distended, nontender. No hepato- splenomegaly or palpable masses. MUSCULOSKELETAL: Extremities without clubbing, cyanosis, or edema. NEUROLOGICAL: Awake and alert. Cranial nerves II through XII grossly intact. Moves all extremities without difficulty. Normal speech. Procedures CT guided renal Bx - 09/02/17 Medications and IVs Current Medications Medications (Trade) Dose Ordered Sig/Elva Route Start Time Stop Time Status Last Admin (Norvasc) 10 mg DAILY PO 09/01/17 16:15 09/06/17 08:23 (CeleXA) 10 mg DAILY PO 09/02/17 09:00 09/06/17 08:23 (Colace) 100 mg BID PRN PO 09/01/17 16:15 (Aricept) 10 mg HS PO 09/01/17 21:00 09/05/17 21:00 (Cozaar) 100 mg DAILY PO 09/01/17 16:15 09/06/17 08:23 (Hytrin) 2 mg HS PO 09/01/17 21:00 09/05/17 21:17 (Desyrel) 100 mg HS PO 09/01/17 21:00 09/05/17 21:17 (Pill Splitter) 1 ea UNSCH PRN OTHER 09/01/17 16:30 Sodium Chloride 1,000 ml @ 150 mls/hr Q6H40M IV 09/01/17 18:00 09/06/17 08:23 (NS Flush) 2 ml UNSCH PRN IV FLUSH 09/01/17 16:45 (NS Flush) 2 ml BID IV FLUSH 09/01/17 21:00 09/04/17 19:41 (Tylenol) 650 mg Q4H PRN PO 09/01/17 16:45 09/05/17 13:16 (Zofran Inj) 4 mg Q6H PRN IVP 09/01/17 16:45 (Ambien) 5 mg HS PRN PO 09/01/17 16:45 (Roxicodone) 5 mg Q6H PRN PO 09/01/17 16:45 09/06/17 09:27 (Narcan Inj) 0.4 mg UNSCH PRN IV PUSH 09/01/17 16:45 (Maria M-Colace) 1 tab BID PO 09/01/17 21:00 09/05/17 21:18 (Milk Of Magnesia Liq) 30 ml Q12H PRN PO 09/01/17 16:45 09/04/17 08:54 (Senokot) 17.2 mg Q12H PRN PO 09/01/17 16:45 09/03/17 18:27 (Dulcolax Supp) 10 mg DAILY PRN RECTAL 09/01/17 16:45 (Heparin Inj) 5,000 units Q8H SQ 09/02/17 02:00 09/06/17 11:16 Piperacillin Sod/ Tazobactam Sod 100 ml @ 200 mls/hr Q6H IV 09/03/17 14:00 09/06/17 08:23 (Lactulose Liq) 30 ml Q12H PO 09/04/17 18:00 09/06/17 06:15 (Flomax) 0.4 mg DAILY PO 09/04/17 13:00 09/06/17 08:23 (El Duong MD R2) A/P Assessment and Plan 72 male with HTN, BPH presenting with: (El Duong MD R2) Attending Attestation Patient seen and examined. Case reviewed and discussed with the resident team. Agree with plan of care as discussed with me and documented in the resident note. (Michelle Sánchez MD) Problem List: (1) Epididymitis, bilateral ICD Codes: N45.1 - Epididymitis Status: Acute Plan: Torsion ruled out by ultrasound US on 09/03 more suggestive of epididymitis. Patient still complaining of groin/ testicular pain worse with ambulation. Initial scrotal US with extratesticular debris L scrotum MRI abd/pelvis showing epididymitis, right renal mass, small b/l adrenal masses (details above) - Tylenol and Motrin at home for pain - Zosyn as below for UTI and epididymitis coverage - For discharge antibiotic, would recommend Levaquin 750 mg PO daily x14 days -Urology following, recommendations appreciated - F/u with urologist as outpatient for possible R partial nephrectomy to further evaluate mass; consider f/u MRI - Continue flomax 0.4mg QD for BPH sxs (2) Left testicular pain ICD Codes: N50.812 - Left testicular pain Status: Resolved Plan: Secondary to epididymitis as above (3) UTI (urinary tract infection) ICD Codes: N39.0 - Urinary tract infection, site not specified Status: Acute Plan: No fevers overnight, Tmax: 100 UA on 09/01 with positive nitrite and leukocyte esterase UCx positive for E. coli, +leukocytosis - Discharge home with levofloxacin x14 days Antibiotic History Rocephin 09/01 - 09/03 Zosyn 09/03 - present (4) Renal mass ICD Codes: N28.89 - Other specified disorders of kidney and ureter Status: Acute Plan: Work-up for pelvic/groin pain revealed large renal mass on right kidney, high suspicion for malignancy PSA- 0.42 CT guided biopsy of renal mass done 09/02 - Showed fibrin debris, no malignant cells - Mass still suspicious for cancer, especially given MRI findings of b/l adrenal masses - F/u with urology as outpatient to consider R partial nephrectomy (5) BPH (benign prostatic hyperplasia) ICD Codes: N40.0 - Benign prostatic hyperplasia without lower urinary tract symptoms Status: Chronic Plan: Stable symptoms, possibly exacerbated due to processes noted above -Continue home terazosin - c/w flomax - f/u post void bladder scan (6) Essential hypertension ICD Codes: I10 - Essential (primary) hypertension Status: Chronic Plan: Continue home losartan, amlodipine, terazosin (7) Constipation ICD Codes: K59.00 - Constipation, unspecified Status: Chronic Plan: Patient with hx of constipation. He stated he takes laxatives daily at home - Continue home bowel regimen PRN (El Duong MD R2) Problem Qualifiers (1) UTI (urinary tract infection): Qualified Codes: N30.00 - Acute cystitis without hematuria (2) BPH (benign prostatic hyperplasia): Qualified Codes: N40.1 - Benign prostatic hyperplasia with lower urinary tract symptoms; R39.12 - Poor urinary stream El Duong MD R2 Sep 06, 2017 11:27 Michelle Sánchez MD Sep 06, 2017 16:03
--- NOTE | 2017-09-06 11:32 | RADRPT ---
EXAM DATE/TIME: 09/06/2017 09:44 [facility] COMPARISON: Ultrasound testicles 09/03/2017, Ultrasound 09/01/2017, CT Abdomen/Pelvis 09/01/2017. INDICATIONS : Pain and swelling left testicle. CONTRAST: 23 cc Omniscan (gadodiamide) IV MEDICAL HISTORY : Hypertension. SURGICAL HISTORY : Bilateral knees, left knee ,left ankle. ENCOUNTER: Initial ACUITY: 3 day PAIN SCORE: 4/10 LOCATION: Pelvis TECHNIQUE: Multiplanar, multisequence magnetic resonance imaging of the pelvis was performed. FINDINGS: MRI of the pelvis was performed. There is suspected artifact related to the previous bilateral total hip arthroplasties. There are symmetric testes bilaterally both in signal and size. There are smal l hydroceles bilaterally. Within the left inguinal canal there is some tortuosity amongst the soft t issues. It does not have the appearance of bowel. I suspect it is just prominent contents of the in guinal canal which is tubular and enlarged diffusely. There is also marked enhancement of the epidid ymis on the left compared to the right possible epididymitis. CONCLUSION: 1. Marked enhancement of the epididymis on the left side. Definite fullness of the left inguinal can al compared to the right may be in part of a component of a varicoseal. It does not have the appeara nce of bowel on this exam or on the recently performed CT scan. 2. Bilateral hydroceles. Gutierrez Velasquez MD on September 06, 2017 at 10:44 Board Certified Radiologist. This report was verified electronically.
[2017-09-06] MEDS ORDERED: TAMS5CAP PO (11:56)
[2017-09-06] MEDS ORDERED: LEVO750T3 PO (11:56)
--- NOTE | 2017-09-06 11:57 | HHI.DCPOC ---
Discharge Care Plan Diagnosis: (1) Epididymitis, bilateral (2) UTI (urinary tract infection) (3) Renal mass (4) Essential hypertension (5) BPH (benign prostatic hyperplasia) Goals to Promote Your Health * To prevent worsening of your condition and complications * To maintain your health at the optimal level Directions to Meet Your Goals Take your medications as prescribed Follow your dietary instruction Follow activity as directed Keep your appointments as scheduled Take your immunizations and boosters as scheduled If your symptoms worsen call your PCP, if no PCP go to Urgent Care Center or Emergency Room Smoking is Dangerous to Your Health. Avoid second hand smoke Call the 24-hour hour crisis hotline for domestic abuse at El Duong MD R2 Sep 06, 2017 11:57
[2017-09-06] MEDS ORDERED: KETOROLAC TROMETHAMINE 60 MG/2 ML (IM) VIAL IM ONE (12:15)
[2017-09-06 12:22] VITALS: BP 152/90; PULSE 82; RESP 20; TEMP 98.9; O2SAT 97
--- NOTE | 2017-09-06 14:47 | HHI.DS ---
Discharge Summary Admission Date Sep 01, 2017 at 3:45 pm Discharge Date: Sep 06, 2017 Admitting Diagnosis Testicular pain (1) Epididymitis, bilateral Diagnosis: Principal ICD Codes: N45.1 - Epididymitis Status: Acute (2) Left testicular pain Diagnosis: Principal ICD Codes: N50.812 - Left testicular pain Status: Resolved (3) UTI (urinary tract infection) Diagnosis: Principal ICD Codes: N39.0 - Urinary tract infection, site not specified Status: Acute (4) Renal mass Diagnosis: Secondary ICD Codes: N28.89 - Other specified disorders of kidney and ureter Status: Acute (5) BPH (benign prostatic hyperplasia) Diagnosis: Secondary ICD Codes: N40.0 - Benign prostatic hyperplasia without lower urinary tract symptoms Status: Chronic (6) Essential hypertension Diagnosis: Secondary ICD Codes: I10 - Essential (primary) hypertension Status: Chronic (7) Constipation Diagnosis: Secondary ICD Codes: K59.00 - Constipation, unspecified Status: Chronic [facility]ants Urology - Damien Clark Procedures CT guided renal Bx - 09/02/17 Brief History 72 yo male with h/o hypertension and BPH presenting with groin/testicular pain x 1 month. Comes and goes. Got worse yesterday morning. Worse on left testicle. Pressure. 8-9/10. Never had pain like this before. Yesterday pain was so bad that he couldn't walk. Weak urinary stream while urinating. occasional dysuria. Every now and then a little red urine, no gross blood. +fever and chills last night. +night sweats. +weight loss (unintentional, due to acute illness a year or so ago, never regained weight). Constipated. No blood in stool .Colonoscopy 1 year ago, normal. +HOOD. +cough for last week. CBC/BMP: 09/06/17 0405 09/06/17 0405 Significant Findings Laboratory Tests Test 09/04/17 00:00 09/04/17 07:45 09/05/17 04:36 09/06/17 04:05 Urine Ketones TRACE mg/dL (NEG) Urine Occult Blood SMALL (NEG) Urine Leukocyte Esterase LARGE (NEG) Urine WBC 15-19 /hpf (0-5) Urine Bacteria FEW /hpf (NONE) White Blood Count 15.3 TH/MM3 (4.0-11.0) 11.2 TH/MM3 (4.0-11.0) Red Blood Count 4.08 MIL/MM3 (4.50-5.90) 3.74 MIL/MM3 (4.50-5.90) 3.87 MIL/MM3 (4.50-5.90) Hemoglobin 12.1 GM/DL (13.0-17.0) 11.1 GM/DL (13.0-17.0) 11.9 GM/DL (13.0-17.0) Hematocrit 36.6 % (39.0-51.0) 33.3 % (39.0-51.0) 34.4 % (39.0-51.0) Neutrophils (%) (Auto) 84.4 % (16.0-70.0) 79.0 % (16.0-70.0) 75.4 % (16.0-70.0) Neutrophils # (Auto) 12.9 TH/MM3 (1.8-7.7) 8.8 TH/MM3 (1.8-7.7) 8.2 TH/MM3 (1.8-7.7) Calcium Level 7.9 MG/DL (8.5-10.1) 7.9 MG/DL (8.5-10.1) 8.4 MG/DL (8.5-10.1) Potassium Level 3.3 MEQ/L (3.5-5.1) 3.3 MEQ/L (3.5-5.1) 3.4 MEQ/L (3.5-5.1) Monocytes (%) (Auto) 8.1 % (0.0-8.0) 9.6 % (0.0-8.0) Blood Urea Nitrogen 5 MG/DL (7-18) 3 MG/DL (7-18) Total Protein 6.3 GM/DL (6.4-8.2) Albumin 2.2 GM/DL (3.4-5.0) Monocytes # (Auto) 1.0 TH/MM3 (0-0.9) Imaging Last Impressions Pelvis MRI 09/06/17 0000 Signed Impressions: Service Date/Time: Wednesday, September 06, 2017 09:44 - CONCLUSION: 1. Marked enhancement of the epididymis on the left side. Definite fullness of the left inguinal canal compared to the right may be in part of a component of a varicoseal. It does not have the appearance of bowel on this exam or on the recently performed CT scan. 2. Bilateral hydroceles. Gutierrez Velasquez MD Abdomen MRI 09/05/17 0000 Signed Impressions: Service Date/Time: Tuesday, September 05, 2017 08:39 - CONCLUSION: 1. The right adrenal gland mass measures approximately 13 mm and has features suggestive of an adrenal adenoma. Left adrenal gland mass measures approximately 16 mm. It is less than optimally visualized due to artifact but no definite imaging characteristics are present to confidently diagnose it as an adenoma. Suggest correlating with any prior outside imaging studies. If none are available could also consider noninvasive evaluation with adrenal protocol CT with and without intravenous contrast. 2. There is a 6.3 cm heterogeneous mass in the right lower pole kidney. There is enhancement along the periphery of the mass making it suspicious for a renal cell carcinoma. There are likely blood products within the mass centrally. Gabino Jackson MD Scrotum Ultrasound 09/03/17 0000 Signed Impressions: Service Date/Time: Sunday, September 03, 2017 11:41 - CONCLUSION: 1. Complex masslike area in the left epididymal tail with increased color Doppler flow likely represents epididymitis. 2. Small bilateral hydroceles. 3. Bilateral intratesticular echogenic foci unchanged. 4. No evidence of testicular torsion as there is symmetric color Doppler flow in the testicles and the testicles are symmetric in size. Carlos Baer MD Renal Biopsy CT 09/01/17 0000 Signed Impressions: Service Date/Time: Saturday, September 02, 2017 14:41 - CONCLUSION: Uncomplicated CT guided biopsy. Low Benites MD Abdomen/Pelvis CT 09/01/17 0000 Signed Impressions: Service Date/Time: August 13:16 - CONCLUSION: 1. 6.6 x 6.2 x 5.8 cm solid mass involving the lower pole of the right kidney. This should be considered malignant until proven otherwise. No involvement of the renal vein. No retroperitoneal adenopathy. The lesion is accessible percutaneously for biopsy. The lesion is too large for consideration for cryoablation. 2. Bilateral adrenal gland nodules which are nonspecific on this study. Adrenal gland protocol MRI could be considered to further evaluate. 3. No acute abnormality to explain the patient's pain. Eduardo Peter Jr., MD PE at Discharge GENERAL: Well-developed, well-nourished adult black male sitting up in bed in no acute distress CARDIOVASCULAR: NRRR. Normal S1/S2. No MRG RESPIRATORY: CTAB. No crackles or wheezes. GASTROINTESTINAL: Abdomen soft, non-distended, nontender. No hepato- splenomegaly or palpable masses. MUSCULOSKELETAL: Extremities without clubbing, cyanosis, or edema. NEUROLOGICAL: Awake and alert. Cranial nerves II through XII grossly intact. Moves all extremities without difficulty. Normal speech. Hospital Course 72 yo male admitted for fevers, testicular pain. Torsion ruled out by ultrasound , findings on exam and U/S consistent with epididymitis. Also found to have UTI. Empiric antibiotics started with Rocephin, then broadened to Zosyn due to spiking persistent fevers. Improved clinically on Zosyn. Incidentally found to have renal mass on CT abdomen/pelvis. CT guided biopsy performed, pathology showing fibrin and blood coagulation products as well as distorted cores of renal tissue, non-diagnostic. Urology was consulted due to epididymitis and renal mass, obtained MRI abdomen & pelvis with results noted above. Recommended follow up with urology as outpatient for consideration of right partial nephrectomy as well as further imaging to evaluate bilateral adrenal masses noted on MRI. Patient medically improved with antibiotics, urine culture growing E. coli. Discharged on Levaquin to cover E. coli and epididymitis, 14 days. F/u with PCP and urology recommended as below. Antibiotic History Rocephin 09/01 - 09/03 Zosyn 09/03 - 09/06 Pt Condition on Discharge: Good Discharge Disposition: Discharge Home Discharge Instructions DIET: Follow Instructions for: As Tolerated, No Restrictions Activities you can perform: Regular-No Restrictions Follow up Referrals: Appointment for Follow Up @ [facility] PCP Follow-up - 2 Weeks Urology - 2 Weeks New Medications: Levofloxacin (Levofloxacin) 750 Mg Tablet 750 MG PO DAILY for Infection, #14 TAB 0 Refills Tamsulosin (Flomax) 0.4 Mg Cap 0.4 MG PO DAILY, #30 CAP Continued Medications: Amlodipine (Amlodipine) 10 Mg Tab 10 MG PO DAILY for Blood Pressure Management, #30 TAB 0 Refills Citalopram (Citalopram) 10 Mg Tab 10 MG PO DAILY for Control Depression, #30 TAB 0 Refills Docusate Sodium (Docusate Sodium) 100 Mg Cap 100 MG PO BID PRN for Prevent Constipation, #60 CAP 0 Refills Donepezil (Donepezil) 10 Mg Tab 10 MG PO HS for Dementia, #30 TAB 0 Refills Etodolac (Etodolac) 400 Mg Tab 400 MG PO TID PRN for PAIN1-10, TAB 0 Refills Take with food. Loratadine (Allergy Relief) 10 Mg Tab 10 MG PO DAILY PRN for ALLERGIES, TAB Losartan (Losartan) 100 Mg Tab 100 MG PO DAILY for Blood Pressure Management, #30 TAB 0 Refills Terazosin (Terazosin) 2 Mg Cap 2 MG PO HS, #30 CAP 0 Refills Trazodone (Trazodone) 150 Mg Tablet 100 MG PO HS for Control Depression, #30 TAB 0 Refills El Duong MD R2 Sep 06, 2017 2:47 pm
== END 2017-09-06 15:27 | disposition home or self-care (01) | DRG 728 ==
LOC: NEPE 10:04 → NEDA 15:45 → N04B 18:01
PROVIDERS: ADMIT Family Medicine; ATTEND Family Medicine
PROC: 0TB03ZX Excision of Right Kidney, Percutaneous Approach, Diagnostic (ICD-10-PCS; principal; 2017-09-02)
DX: N45.1 Epididymitis (principal); E27.8 Other specified disorders of adrenal gland; N39.0 Urinary tract infection, site not specified; N13.8 Other obstructive and reflux uropathy; N28.89 Other specified disorders of kidney and ureter; N45.3 Epididymo-orchitis; I10 Essential (primary) hypertension; B96.20 Unspecified Escherichia coli [E. coli] as the cause of diseases classified elsewhere; K59.00 Constipation, unspecified; N40.1 Benign prostatic hyperplasia with lower urinary tract symptoms; F32.9 Major depressive disorder, single episode, unspecified; Z87.891 Personal history of nicotine dependence; Z23 Encounter for immunization
CPT/HCPCS: 50200; 72197; 74177; 74183; 76870; 77012; 80048; 80053; 81001; 83605; 85025; 85027; 85610; 85730; 87077; 87086; 87186; 88305; 90732; 93975; 96365; 96375; A9579; G0103; J0696; J1644; J1885; J2250; J2270; J2405; J2543; J3010; J7030; Q9967